=== PATIENT | female | born 2000 | race Caucasian/White ===

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

== ENCOUNTER 2022-03-08 20:51 | Emergency (ER) | payer OTHER, BC ==
[~2022-03-08] VITALS: Ht 175.3 cm; Wt 57.0 kg
[~2022-03-08 20:51] MED LIST changes: +FLUOXETINE HCL20 M1 PO
== END 2022-03-08 23:33 | disposition home or self-care (01) ==
LOC: ED 20:51
DX: S80.211A Abrasion, right knee, initial encounter (principal); W01.0XXA Fall on same level from slipping, tripping and stumbling without subsequent striking against object, initial encounter; Y93.67 Activity, basketball; Z88.0 Allergy status to penicillin
CPT/HCPCS: 76705; 99283-25

== ENCOUNTER 2022-07-29 13:28 | Emergency (ER) | payer OTHER ==
[~2022-07-29] VITALS: Ht 175.3 cm; Wt 49.9 kg
[2022-07-29] MEDS ORDERED: PRILOSEC OTC20 MG PO (17:35)
[2022-07-29] MEDS ORDERED: ONDANSETRON ODT4 MG PO (17:35)
== END 2022-07-29 19:47 | disposition home or self-care (01) ==
LOC: ED 13:28
DX: K29.70 Gastritis, unspecified, without bleeding (principal); Z88.0 Allergy status to penicillin
CPT/HCPCS: 36415; 74177; 80053; 81003; 83690; 84703; 85025; 99284-25; J2405; J7030; Q9967

== ENCOUNTER 2022-08-11 17:35 | Emergency (ER) | payer OTHER ==
[~2022-08-11] VITALS: Ht 175.3 cm; Wt 51.9 kg
[~2022-08-11 17:35] MED LIST changes: +ONDANSETRON ODT4 MG PO; +PRILOSEC OTC20 MG PO
--- OUTSIDE RECORDS SUMMARY | 2022-08-11 17:44 | XMS ---
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 Care History Medical/Surgical 09/06/2018 [facility] - Patient is currently established with [facility]. If patient is seen in the ED during business hours. Please contact CHWs at [facility]. Care Recommendation: This patient has had 5 [...] providing care. E.D. VISIT COUNT (12 MO.) [address] [facility] TOTAL 5 NOTE: Visits indicate total known visits. ED/UCC VISIT TRACKING (12 MO.) 08/11/2022 17:[facility] TYPE: Emergency COMPLAINT: - N/V 3 HOURS 07/29/2022 13:[facility] TYPE: Emergency COMPLAINT: - ABD PAIN, NAUSEA DIAGNOSES: - Epigastric pain - Gastritis, unspecified, without bleeding - Allergy status to penicillin 03/08/2022 20:54 [facility] TYPE: Emergency COMPLAINT: - FELL MULTI INJURIES DIAGNOSES: - Essential (primary) hypertension - Abrasion, right knee, initial encounter - Fall on same level from slipping, tripping and stumbling without subsequent striking against object, initial encounter - Pain in left hip - Activity, basketball - Allergy status to penicillin 01/07/2022 09:19 [facility] TYPE: Emergency COMPLAINT: - ABD PAIN, DIARRHEA, NAUSEA DIAGNOSES: - Other intermediate (current) drug therapy - Noninfective gastroenteritis and colitis, unspecified - Unspecified abdominal pain - Allergy status to penicillin 01/02/2022 11:20 [facility] TYPE: Emergency COMPLAINT: - FINGER INJURY INPATIENT VISIT TRACKING (12 MO.) No inpatient visits to display in this time frame [email or web address]
[2022-08-11] MEDS ORDERED: ONDANSETRON ODT8 MG PO (20:18)
== END 2022-08-11 20:45 | disposition home or self-care (01) ==
LOC: ED 17:35
DX: K52.9 Noninfective gastroenteritis and colitis, unspecified (principal); Z88.0 Allergy status to penicillin
CPT/HCPCS: 36415; 80053; 84703; 85025; 96361; 96374; 96375; 99284-25; A9270; J1790; J2405; J7030

== ENCOUNTER 2022-12-30 09:35 | Emergency (ER) | payer OTHER ==
[~2022-12-30] VITALS: Ht 175.3 cm; Wt 51.0 kg
--- OUTSIDE RECORDS SUMMARY | ~2022-12-30 | XMS | Continuity of Care Document ---
Demographics + + + | Address | [address] | | | [place] [address] | + + + | Preferred Language | Unknown | + + + | Marital Status | Never | + + + | Zoroastrian Affiliation | Unknown | + + + | Race | White | + + + | Ethnic Group | Not or | + + + Author + + + | Author | [facility] | + + + | Organization | [facility] | + + + | Address | [address] | | | [place] [address] | + + + | Phone | | + + + Care Team Providers + + + + | Care Medical Records Administrator Name | Role | Phone | + + + + Unavailable | Unavailable | + + + + Unavailable | Unavailable | + + + + Unavailable | Unavailable | + + + + Unavailable | Unavailable | + + + + Allergies and Intolerances + + + + + + | date | description | facility | reaction | severity | + + + + + + | (no date) | Rash | [facility] | (no reaction) | (no severity) | | | [facility] | | | + + + + + + | (no date) | Penicillin | [facility] | (no reaction) | (no severity) | | | [facility] | | | + + + + + + | (no date) | Penicillin | [facility] | (no reaction) | (no severity) | | | [facility] | | | + + + + + + | (no date) | Penicillin | [facility] | (no reaction) | (no severity) | | | | [facility] | | | + + + + + + | (no date) | Penicillin | [facility] | (no reaction) | (no severity) | | | | [facility] | | | + + + + + + Encounters No information. Functional Status No information. Immunizations No information. Medications + + + + | date | description | facility | + + + + | 2022-01-02 00:00 | FLUOXETINE HCL | [facility] | + + + + | 2022-01-07 00:00 | FLUOXETINE HCL | [facility] | + + + + | 2022-03-08 00:00 | FLUOXETINE HCL | [facility] | + + + + | 2022-07-29 00:00 | FLUOXETINE HCL | [facility] | + + + + | 2022-08-11 00:00 | FLUOXETINE HCL | [facility] | + + + + | 2022-07-29 00:00 | ONDANSETRON | [facility] | + + + + | 2022-01-02 00:00 | HYDROCODONE/ACETAMINOPHEN | [facility] | + + + + | 2022-01-07 00:00 | HYDROCODONE/ACETAMINOPHEN | [facility] | + + + + | 2022-03-08 00:00 | HYDROCODONE/ACETAMINOPHEN | [facility] | + + + + | 2022-07-29 00:00 | HYDROCODONE/ACETAMINOPHEN | [facility] | + + + + | 2022-08-11 00:00 | HYDROCODONE/ACETAMINOPHEN | [facility] | + + + + | 2017-07-07 00:00 | AZITHROMYCIN | [facility] | + + + + | 2017-07-07 00:00 | AZITHROMYCIN | [facility] | + + + + | 2017-07-07 00:00 | AZITHROMYCIN | [facility] | + + + + | 2022-01-02 00:00 | FLUOXETINE HCL | [facility] | + + + + | 2022-01-07 00:00 | FLUOXETINE HCL | [facility] | + + + + | 2022-03-08 00:00 | FLUOXETINE HCL | [facility] | + + + + | 2022-01-02 00:00 | ACETAMINOPHEN | [facility] | + + + + | 2022-01-07 00:00 | ACETAMINOPHEN | [facility] | + + + + | 2022-03-08 00:00 | ACETAMINOPHEN | [facility] | + + + + | 2022-07-29 00:00 | ACETAMINOPHEN | [facility] | + + + + | 2022-08-11 00:00 | ACETAMINOPHEN | [facility] | + + + + | 2018-08-15 00:00 | ONDANSETRON | [facility] | + + + + | 2018-08-15 00:00 | ONDANSETRON | [facility] | + + + + | 2018-08-15 00:00 | ONDANSETRON | [facility] | + + + + | 2020-08-17 00:00 | ONDANSETRON | [facility] | + + + + | 2020-08-17 00:00 | ONDANSETRON | [facility] | + + + + | 2020-08-17 00:00 | ONDANSETRON | [facility] | + + + + | 2021-07-21 00:00 | ONDANSETRON | [facility] | + + + + | 2021-07-21 00:00 | ONDANSETRON | [facility] | + + + + | 2021-07-21 00:00 | ONDANSETRON | [facility] | + + + + | 2022-08-11 00:00 | ONDANSETRON | [facility] | + + + + | 2022-07-29 00:00 | OMEPRAZOLE MAGNESIUM | [facility] | + + + + | 2022-01-02 00:00 | ONDANSETRON | [facility] | + + + + | 2022-01-07 00:00 | ONDANSETRON | [facility] | + + + + | 2022-03-08 00:00 | ONDANSETRON | [facility] | + + + + | 2022-07-29 00:00 | ONDANSETRON | [facility] | + + + + | 2022-08-11 00:00 | ONDANSETRON | [facility] | + + + + Problems + + + + | date | description | facility | + + + + | 2014-07-25 00:00 | Upper respiratory | [facility] | | | infection | | + + + + | 2014-07-25 00:00 | Upper respiratory | [facility] | | | infection | | + + + + | 2014-07-25 00:00 | Upper respiratory | [facility] | | | infection | | + + + + | 2015-06-10 00:00 | Acute streptococcal | [facility] | | | pharyngitis | | + + + + | 2015-06-10 00:00 | Acute streptococcal | [facility] | | | pharyngitis | | + + + + | 2015-06-10 00:00 | Acute streptococcal | [facility] | | | pharyngitis | | + + + + | 2015-11-14 00:00 | Dehydration | [facility] | + + + + | 2015-11-14 00:00 | Dehydration | [facility] | + + + + | 2015-11-14 00:00 | Dehydration | [facility] | + + + + | 2015-11-14 00:00 | Postoperative pain | [facility] | + + + + | 2015-11-14 00:00 | Postoperative pain | [facility] | + + + + | 2015-11-14 00:00 | Postoperative pain | [facility] | + + + + | 2017-07-07 00:00 | Pharyngitis due to | [facility] | | | Streptococcus species | | + + + + | 2017-07-07 00:00 | Pharyngitis due to | [facility] | | | Streptococcus species | | + + + + | 2017-07-07 00:00 | Pharyngitis due to | [facility] | | | Streptococcus species | | + + + + | 2017-10-27 00:00 | Patient left without being | [facility] | | | seen | | + + + + | 2017-10-27 00:00 | Patient left without being | [facility] | | | seen | | + + + + | 2017-10-27 00:00 | Patient left without being | [facility] | | | seen | | + + + + | 2018-06-01 00:00 | Sprain of right wrist | [facility] | + + + + | 2018-06-01 00:00 | Sprain of right wrist | [facility] | + + + + | 2018-06-01 00:00 | Sprain of right wrist | [facility] | + + + + | 2018-08-15 00:00 | Abdominal pain | [facility] | + + + + | 2018-08-15 00:00 | Abdominal pain | [facility] | + + + + | 2018-08-15 00:00 | Abdominal pain | [facility] | + + + + | 2018-09-03 00:00 | Sprain of right ankle | [facility] | + + + + | 2018-09-03 00:00 | Sprain of right ankle | [facility] | + + + + | 2018-09-03 00:00 | Sprain of right ankle | [facility] | + + + + | 2019-05-12 00:00 | Upper respiratory tract | [facility] | | | infection | | + + + + | 2019-05-12 00:00 | Upper respiratory tract | [facility] | | | infection | | + + + + | 2019-05-12 00:00 | Upper respiratory tract | [facility] | | | infection | | + + + + | 2020-08-17 00:00 | Viral infection | [facility] | + + + + | 2020-08-17 00:00 | Viral infection | [facility] | + + + + | 2020-08-17 00:00 | Viral infection | [facility] | + + + + | 2020-12-01 00:00 | Right upper quadrant | [facility] | | | abdominal pain | | + + + + | 2020-12-01 00:00 | Right upper quadrant | [facility] | | | abdominal pain | | + + + + | 2020-12-01 00:00 | Right upper quadrant | [facility] | | | abdominal pain | | + + + + | 2021-07-21 00:00 | Gastroenteritis | [facility] | + + + + | 2021-07-21 00:00 | Gastroenteritis | [facility] | + + + + | 2021-07-21 00:00 | Gastroenteritis | [facility] | + + + + | 2022-01-02 00:00 | Encounter for medical | [facility] | | | screening examination | | + + + + | 2022-01-02 00:00 | Encounter for medical | [facility] | | | screening examination | | + + + + | 2022-01-02 00:00 | Encounter for medical | [facility] | | | screening examination | | + + + + | 2022-01-07 00:00 | Enterocolitis | [facility] | + + + + | 2022-01-07 00:00 | Enterocolitis | [facility] | + + + + | 2022-01-07 00:00 | Enterocolitis | [facility] | + + + + | 2022-03-08 00:00 | Multiple contusions | [facility] | + + + + | 2022-03-08 00:00 | Multiple contusions | [facility] | + + + + | 2022-03-08 00:00 | Multiple contusions | [facility] | + + + + | 2022-07-29 00:00 | Gastritis | [facility] | + + + + | 2022-07-29 00:00 | Gastritis | [facility] | + + + + | 2022-08-11 17:36 | NONINFECTIVE | [facility] | | | GASTROENTERITIS AND | | | | COLITIS, UNSPECIF | | + + + + | 2022-08-11 17:36 | NAUSEA WITH VOMITING, | [facility] | | | UNSPECIFIED | | + + + + | 2022-08-11 17:36 | ALLERGY STATUS TO | [facility] | | | PENICILLIN | | + + + + Procedures No information. Results/Labs +--------+--------+ +---------+--------+---------+ | test | date | facility | value | unit | notes | +--------+--------+ +---------+--------+---------+ + + | Result panel 1 | + + + + + +--------+ + + | | 2021-07-21 | [facility] | 4.43 | (missing) | (missing) | | (unavailable | 05:45 | [facility] | | | | + + + +--------+ + + + + | Result panel 2 | + + + + + +--------+ + + | | 2021-07-21 | [facility] | 13.4 | (missing) | (missing) | | (unavailable | 05:45 | [facility] | | | | + + + +--------+ + + + + | Result panel 3 | + + + + + +--------+ + + | | 2021-07-21 | [facility] | 40.3 | (missing) | (missing) | | (unavailable | 05:45 | [facility] | | | | + + + +--------+ + + + + | Result panel 4 | + + + + + +--------+ + + | | 2021-07-21 | [facility] | 90.9 | (missing) | (missing) | | (unavailable | 05:45 | [facility] | | | | + + + +--------+ + + + + | Result panel 5 | + + + + + +--------+ + + | | 2021-07-21 | [facility] | 30.3 | (missing) | (missing) | | (unavailable | 05:45 | [facility] | | | | + + + +--------+ + + + + | Result panel 6 | + + + + + +--------+ + + | | 2021-07-21 | [facility] | 33.3 | (missing) | (missing) | | (unavailable | 05:45 | [facility] | | | | + + + +--------+ + + + + | Result panel 7 | + + + + + +--------+ + + | | 2021-07-21 | [facility] | 13.1 | (missing) | (missing) | | (unavailable | 05:45 | [facility] | | | | + + + +--------+ + + + + | Result panel 8 | + + + + + +-------+ + + | | 2021-07-21 | [facility] | 199 | (missing) | (missing) | | (unavailable | 05:45 | [facility] | | | | + + + +-------+ + + + + | Result panel 9 | + + + + + +--------+ + + | | 2021-07-21 | [facility] | 88.5 | (missing) | (missing) | | (unavailable | 05:45 | [facility] | | | | + + + +--------+ + + + + | Result panel 10 | + + + + + +-------+ + + | | 2021-07-21 | [facility] | 6.7 | (missing) | (missing) | | (unavailable | 05:45 | [facility] | | | | + + + +-------+ + + + + | Result panel 11 | + + + + + +-------+ + + | | 2021-07-21 | [facility] | 4.2 | (missing) | (missing) | | (unavailable | 05:45 | [facility] | | | | + + + +-------+ + + + + | Result panel 12 | + + + + + +-------+ + + | | 2021-07-21 | [facility] | 0.5 | (missing) | (missing) | | (unavailable | 05:45 | [facility] | | | | + + + +-------+ + + + + | Result panel 13 | + + + + + +-------+ + + | | 2021-07-21 | [facility] | 0.1 | (missing) | (missing) | | (unavailable | 05:45 | [facility] | | | | + + + +-------+ + + + + | Result panel 14 | + + + + + +-------+---------+ + | | 2021-07-21 | [facility] | 126 | mg/dL | (missing) | | (unavailable | 05:45 | [facility] | | | | + + + +-------+---------+ + + + | Result panel 15 | + + + + + +------+---------+ + | | 2021-07-21 | [facility] | 12 | mg/dL | (missing) | | (unavailable | 05:45 | [facility] | | | | + + + +------+---------+ + + + | Result panel 16 | + + + + + +--------+---------+ + | | 2021-07-21 | [facility] | 0.77 | mg/dL | (missing) | | (unavailable | 05:45 | [facility] | | | | + + + +--------+---------+ + + + | Result panel 17 | + + + + + + + + + | | 2021-07-21 | [facility] | > 60.00 | (missing) | (missing) | | (unavailable | 05:45 | [facility] | | | | + + + + + + + + + | Result panel 18 | + + + + + +---------+ + + | | 2021-07-21 | [facility] | 15.58 | (missing) | (missing) | | (unavailable | 05:45 | [facility] | | | | + + + +---------+ + + + + | Result panel 19 | + + + + + +-------+ + + | | 2021-07-21 | [facility] | 138 | (missing) | (missing) | | (unavailable | 05:45 | [facility] | | | | + + + +-------+ + + + + | Result panel 20 | + + + + + +-------+ + + | | 2021-07-21 | [facility] | 3.6 | (missing) | (missing) | | (unavailable | 05:45 | [facility] | | | | + + + +-------+ + + + + | Result panel 21 | + + + + + +-------+ + + | | 2021-07-21 | [facility] | 105 | (missing) | (missing) | | (unavailable | 05:45 | [facility] | | | | + + + +-------+ + + + + | Result panel 22 | + + + + + +------+ + + | | 2021-07-21 | [facility] | 26 | (missing) | (missing) | | (unavailable | 05:45 | [facility] | | | | + + + +------+ + + + + | Result panel 23 | + + + + + +--------+ + + | | 2021-07-21 | [facility] | 10.6 | (missing) | (missing) | | (unavailable | 05:45 | [facility] | | | | + + + +--------+ + + + + | Result panel 24 | + + + + + +-------+---------+ + | | 2021-07-21 | [facility] | 8.8 | mg/dL | (missing) | | (unavailable | 05:45 | [facility] | | | | + + + +-------+---------+ + + + | Result panel 25 | + + + + + +-------+ + + | | 2021-07-21 | [facility] | 7.5 | (missing) | (missing) | | (unavailable | 05:45 | [facility] | | | | + + + +-------+ + + + + | Result panel 26 | + + + + + +-------+ + + | | 2021-07-21 | [facility] | 4.2 | (missing) | (missing) | | (unavailable | 05:45 | [facility] | | | | + + + +-------+ + + + + | Result panel 27 | + + + + + +-------+ + + | | 2021-07-21 | [facility] | 3.3 | (missing) | (missing) | | (unavailable | 05:45 | [facility] | | | | + + + +-------+ + + + + | Result panel 28 | + + + + + +--------+ + + | | 2021-07-21 | [facility] | 1.27 | (missing) | (missing) | | (unavailable | 05:45 | [facility] | | | | + + + +--------+ + + + + | Result panel 29 | + + + + + +-------+ + + | | 2021-07-21 | [facility] | 1.0 | (missing) | (missing) | | (unavailable | 05:45 | [facility] | | | | + + + +-------+ + + + + | Result panel 30 | + + + + + +------+ + + | | 2021-07-21 | [facility] | 13 | (missing) | (missing) | | (unavailable | 05:45 | [facility] | | | | + + + +------+ + + + + | Result panel 31 | + + + + + +------+ + + | | 2021-07-21 | [facility] | 12 | (missing) | (missing) | | (unavailable | 05:45 | [facility] | | | | + + + +------+ + + + + | Result panel 32 | + + + + + +------+ + + | | 2021-07-21 | [facility] | 71 | (missing) | (missing) | | (unavailable | 05:45 | [facility] | | | | + + + +------+ + + + + | Result panel 33 | + + + + + +-------+ + + | | 2021-07-21 | [facility] | 109 | (missing) | (missing) | | (unavailable | 05:45 | [facility] | | | | + + + +-------+ + + + + | Result panel 34 | + + + + + + + + + | | 2021-07-21 | [facility] | NEGATIVE | (missing) | (missing) | | (unavailable | 05:45 | [facility] | | | | + + + + + + + + + | Result panel 35 | + + + + + +--------+ + + | | 2021-07-21 | [facility] | 10.5 | (missing) | (missing) | | (unavailable | 05:45 | [facility] | | | | + + + +--------+ + + + + | Result panel 36 | + + + + + + + + + | | 2021-07-21 | [facility] | YELLOW | (missing) | (missing) | | (unavailable | 06:48 | [facility] | | | | + + + + + + + + + | Result panel 37 | + + + + + +---------+ + + | | 2021-07-21 | [facility] | CLEAR | (missing) | (missing) | | (unavailable | 06:48 | [facility] | | | | + + + +---------+ + + + + | Result panel 38 | + + + + + + + + + | | 2021-07-21 | [facility] | NEGATIVE | (missing) | (missing) | | (unavailable | 06:48 | [facility] | | | | + + + + + + + + + | Result panel 39 | + + + + + + + + + | | 2021-07-21 | [facility] | NEGATIVE | (missing) | (missing) | | (unavailable | 06:48 | [facility] | | | | + + + + + + + + + | Result panel 40 | + + + + + + + + + | | 2021-07-21 | [facility] | NEGATIVE | (missing) | (missing) | | (unavailable | 06:48 | [facility] | | | | + + + + + + + + + | Result panel 41 | + + + + + + + + + | | 2021-07-21 | [facility] | <=1.005 | (missing) | (missing) | | (unavailable | 06:48 | [facility] | | | | + + + + + + + + + | Result panel 42 | + + + + + +---------+ + + | | 2021-07-21 | [facility] | LARGE | (missing) | (missing) | | (unavailable | 06:48 | [facility] | | | | + + + +---------+ + + + + | Result panel 43 | + + + + + +-------+ + + | | 2021-07-21 | [facility] | 5.0 | (missing) | (missing) | | (unavailable | 06:48 | [facility] | | | | + + + +-------+ + + + + | Result panel 44 | + + + + + + + + + | | 2021-07-21 | [facility] | NEGATIVE | (missing) | (missing) | | (unavailable | 06:48 | [facility] | | | | + + + + + + + + + | Result panel 45 | + + + + + + + + + | | 2021-07-21 | [facility] | NORMAL | (missing) | (missing) | | (unavailable | 06:48 | [facility] | | | | + + + + + + + + + | Result panel 46 | + + + + + + + + + | | 2021-07-21 | [facility] | NEGATIVE | (missing) | (missing) | | (unavailable | 06:48 | [facility] | | | | + + + + + + + + + | Result panel 47 | + + + + + + + + + | | 2021-07-21 | [facility] | NEGATIVE | (missing) | (missing) | | (unavailable | 06:48 | [facility] | | | | + + + + + + + + + | Result panel 48 | + + + + + +-------+ + + | | 2021-07-21 | [facility] | 2-3 | (missing) | (missing) | | (unavailable | 06:48 | [facility] | | | | + + + +-------+ + + + + | Result panel 49 | + + + + + +-------+ + + | | 2021-07-21 | [facility] | 2-3 | (missing) | (missing) | | (unavailable | 06:48 | [facility] | | | | + + + +-------+ + + + + | Result panel 50 | + + + + + + + + + | | 2021-07-21 | [facility] | SQUAMOUS 2+ | (missing) | (missing) | | (unavailable | 06:48 | [facility] | | | | + + + + + + + + + | Result panel 51 | + + + + + + + + + | | 2021-07-21 | [facility] | NONE SEEN | (missing) | (missing) | | (unavailable | 06:48 | [facility] | | | | + + + + + + + + + | Result panel 52 | + + + + + + + + + | | 2021-07-21 | [facility] | NONE SEEN | (missing) | (missing) | | (unavailable | 06:48 | [facility] | | | | + + + + + + + + + | Result panel 53 | + + + + + + + + + | | 2021-07-21 | [facility] | NONE SEEN | (missing) | (missing) | | (unavailable | 06:48 | [facility] | | | | + + + + + + + + + | Result panel 54 | + + + + + +-------+ + + | | 2022-01-07 | [facility] | 6.4 | (missing) | (missing) | | (unavailable | 09:35 | [facility] | | | | + + + +-------+ + + + + | Result panel 55 | + + + + + +--------+ + + | | 2022-01-07 | [facility] | 4.23 | (missing) | (missing) | | (unavailable | 09:35 | [facility] | | | | + + + +--------+ + + + + | Result panel 56 | + + + + + +--------+ + + | | 2022-01-07 | [facility] | 12.8 | (missing) | (missing) | | (unavailable | 09:35 | [facility] | | | | + + + +--------+ + + + + | Result panel 57 | + + + + + +--------+ + + | | 2022-01-07 | [facility] | 38.6 | (missing) | (missing) | | (unavailable | 09:35 | [facility] | | | | + + + +--------+ + + + + | Result panel 58 | + + + + + +--------+ + + | | 2022-01-07 | [facility] | 91.3 | (missing) | (missing) | | (unavailable | 09:35 | [facility] | | | | + + + +--------+ + + + + | Result panel 59 | + + + + + +--------+ + + | | 2022-01-07 | [facility] | 30.3 | (missing) | (missing) | | (unavailable | 09:35 | [facility] | | | | + + + +--------+ + + + + | Result panel 60 | + + + + + +--------+ + + | | 2022-01-07 | [facility] | 33.2 | (missing) | (missing) | | (unavailable | 09:35 | [facility] | | | | + + + +--------+ + + + + | Result panel 61 | + + + + + +--------+ + + | | 2022-01-07 | [facility] | 12.8 | (missing) | (missing) | | (unavailable | 09:35 | [facility] | | | | + + + +--------+ + + + + | Result panel 62 | + + + + + +-------+ + + | | 2022-01-07 | [facility] | 178 | (missing) | (missing) | | (unavailable | 09:35 | [facility] | | | | + + + +-------+ + + + + | Result panel 63 | + + + + + +--------+ + + | | 2022-01-07 | [facility] | 85.2 | (missing) | (missing) | | (unavailable | 09:35 | [facility] | | | | + + + +--------+ + + + + | Result panel 64 | + + + + + +--------+ + + | | 2022-01-07 | [facility] | 10.2 | (missing) | (missing) | | (unavailable | 09:35 | [facility] | | | | + + + +--------+ + + + + | Result panel 65 | + + + + + +-------+ + + | | 2022-01-07 | [facility] | 4.4 | (missing) | (missing) | | (unavailable | 09:35 | [facility] | | | | + + + +-------+ + + + + | Result panel 66 | + + + + + +-------+ + + | | 2022-01-07 | [facility] | 0.0 | (missing) | (missing) | | (unavailable | 09:35 | [facility] | | | | + + + +-------+ + + + + | Result panel 67 | + + + + + +-------+ + + | | 2022-01-07 | [facility] | 0.2 | (missing) | (missing) | | (unavailable | 09:35 | [facility] | | | | + + + +-------+ + + + + | Result panel 68 | + + + + + +------+---------+ + | | 2022-01-07 | [facility] | 83 | mg/dL | (missing) | | (unavailable | 09:35 | [facility] | | | | + + + +------+---------+ + + + | Result panel 69 | + + + + + +------+---------+ + | | 2022-01-07 | [facility] | 14 | mg/dL | (missing) | | (unavailable | 09:35 | [facility] | | | | + + + +------+---------+ + + + | Result panel 70 | + + + + + +--------+---------+ + | | 2022-01-07 | [facility] | 0.64 | mg/dL | (missing) | | (unavailable | 09:35 | [facility] | | | | + + + +--------+---------+ + + + | Result panel 71 | + + + + + +-------+ + + | | 2022-01-07 | [facility] | 130 | (missing) | (missing) | | (unavailable | 09:35 | [facility] | | | | + + + +-------+ + + + + | Result panel 72 | + + + + + +---------+ + + | | 2022-01-07 | [facility] | 21.87 | (missing) | (missing) | | (unavailable | 09:35 | [facility] | | | | + + + +---------+ + + + + | Result panel 73 | + + + + + +-------+ + + | | 2022-01-07 | [facility] | 137 | (missing) | (missing) | | (unavailable | 09:35 | [facility] | | | | + + + +-------+ + + + + | Result panel 74 | + + + + + +-------+ + + | | 2022-01-07 | [facility] | 3.9 | (missing) | (missing) | | (unavailable | 09:35 | [facility] | | | | + + + +-------+ + + + + | Result panel 75 | + + + + + +-------+ + + | | 2022-01-07 | [facility] | 101 | (missing) | (missing) | | (unavailable | 09:35 | [facility] | | | | + + + +-------+ + + + + | Result panel 76 | + + + + + +------+ + + | | 2022-01-07 | [facility] | 23 | (missing) | (missing) | | (unavailable | 09:35 | [facility] | | | | + + + +------+ + + + + | Result panel 77 | + + + + + +--------+ + + | | 2022-01-07 | [facility] | 16.9 | (missing) | (missing) | | (unavailable | 09:35 | [facility] | | | | + + + +--------+ + + + + | Result panel 78 | + + + + + +-------+---------+ + | | 2022-01-07 | [facility] | 8.5 | mg/dL | (missing) | | (unavailable | 09:35 | [facility] | | | | + + + +-------+---------+ + + + | Result panel 79 | + + + + + +-------+ + + | | 2022-01-07 | [facility] | 7.3 | (missing) | (missing) | | (unavailable | 09:35 | [facility] | | | | + + + +-------+ + + + + | Result panel 80 | + + + + + +-------+ + + | | 2022-01-07 | [facility] | 3.9 | (missing) | (missing) | | (unavailable | 09:35 | [facility] | | | | + + + +-------+ + + + + | Result panel 81 | + + + + + +-------+ + + | | 2022-01-07 | [facility] | 3.4 | (missing) | (missing) | | (unavailable | 09:35 | [facility] | | | | + + + +-------+ + + + + | Result panel 82 | + + + + + +--------+ + + | | 2022-01-07 | [facility] | 1.15 | (missing) | (missing) | | (unavailable | 09:35 | [facility] | | | | + + + +--------+ + + + + | Result panel 83 | + + + + + +-------+ + + | | 2022-01-07 | [facility] | 1.4 | (missing) | (missing) | | (unavailable | 09:35 | [facility] | | | | + + + +-------+ + + + + | Result panel 84 | + + + + + +------+ + + | | 2022-01-07 | [facility] | 16 | (missing) | (missing) | | (unavailable | 09:35 | [facility] | | | | + + + +------+ + + + + | Result panel 85 | + + + + + +------+ + + | | 2022-01-07 | [facility] | 20 | (missing) | (missing) | | (unavailable | 09:35 | [facility] | | | | + + + +------+ + + + + | Result panel 86 | + + + + + +------+ + + | | 2022-01-07 | [facility] | 76 | (missing) | (missing) | | (unavailable | 09:35 | [facility] | | | | + + + +------+ + + + + | Result panel 87 | + + + + + +------+ + + | | 2022-01-07 | [facility] | 42 | (missing) | (missing) | | (unavailable | 09:35 | [facility] | | | | + + + +------+ + + + + | Result panel 88 | + + + + + + + + + | | 2022-01-07 | [facility] | NEGATIVE | (missing) | (missing) | | (unavailable | 09:35 | [facility] | | | | + + + + + + + + + | Result panel 89 | + + + + + + + + + | | 2022-01-07 | [facility] | YELLOW | (missing) | (missing) | | (unavailable | 10:26 | [facility] | | | | + + + + + + + + + | Result panel 90 | + + + + + +---------+ + + | | 2022-01-07 | [facility] | CLEAR | (missing) | (missing) | | (unavailable | 10:26 | [facility] | | | | + + + +---------+ + + + + | Result panel 91 | + + + + + + + + + | | 2022-01-07 | [facility] | NEGATIVE | (missing) | (missing) | | (unavailable | 10:26 | [facility] | | | | + + + + + + + + + | Result panel 92 | + + + + + + + + + | | 2022-01-07 | [facility] | NEGATIVE | (missing) | (missing) | | (unavailable | 10:26 | [facility] | | | | + + + + + + + + + | Result panel 93 | + + + + + +--------+ + + | | 2022-01-07 | [facility] | >=80 | (missing) | (missing) | | (unavailable | 10:26 | [facility] | | | | + + + +--------+ + + + + | Result panel 94 | + + + + + + + + + | | 2022-01-07 | [facility] | >=1.030 | (missing) | (missing) | | (unavailable | 10:26 | [facility] | | | | + + + + + + + + + | Result panel 95 | + + + + + + + + + | | 2022-01-07 | [facility] | NEGATIVE | (missing) | (missing) | | (unavailable | 10:26 | [facility] | | | | + + + + + + + + + | Result panel 96 | + + + + + +-------+ + + | | 2022-01-07 | [facility] | 6.0 | (missing) | (missing) | | (unavailable | 10:26 | [facility] | | | | + + + +-------+ + + + + | Result panel 97 | + + + + + + + + + | | 2022-01-07 | [facility] | NEGATIVE | (missing) | (missing) | | (unavailable | 10:26 | [facility] | | | | + + + + + + + + + | Result panel 98 | + + + + + + + + + | | 2022-01-07 | [facility] | NORMAL | (missing) | (missing) | | (unavailable | 10:26 | [facility] | | | | + + + + + + + + + | Result panel 99 | + + + + + + + + + | | 2022-01-07 | [facility] | NEGATIVE | (missing) | (missing) | | (unavailable | 10:26 | [facility] | | | | + + + + + + + + + | Result panel 100 | + + + + + + + + + | | 2022-01-07 | [facility] | NEGATIVE | (missing) | (missing) | | (unavailable | 10:26 | [facility] | | | | + + + + + + + + + | Result panel 101 | + + + + + +--------+ + + | | 2022-07-29 | [facility] | 77.3 | (missing) | (missing) | | (unavailable | 14:29:07 | [facility] | | | | + + + +--------+ + + + + | Result panel 102 | + + + + + +--------+ + + | | 2022-07-29 | [facility] | 11.7 | (missing) | (missing) | | (unavailable | 14:29:07 | [facility] | | | | + + + +--------+ + + + + | Result panel 103 | + + + + + +-------+ + + | | 2022-07-29 | [facility] | 9.8 | (missing) | (missing) | | (unavailable | 14:29:07 | [facility] | | | | + + + +-------+ + + + + | Result panel 104 | + + + + + +-------+ + + | | 2022-07-29 | [facility] | 1.1 | (missing) | (missing) | | (unavailable | 14:29:07 | [facility] | | | | + + + +-------+ + + + + | Result panel 105 | + + + + + +-------+ + + | | 2022-07-29 | [facility] | 0.1 | (missing) | (missing) | | (unavailable | 14:29:07 | [facility] | | | | + + + +-------+ + + + + | Result panel 106 | + + + + + +------+ + + | | 2022-07-29 | [facility] | 60 | (missing) | (missing) | | (unavailable | 14:29:07 | [facility] | | | | + + + +------+ + + + + | Result panel 107 | + + + + + +-------+ + + | | 2022-07-29 | [facility] | 9.9 | (missing) | (missing) | | (unavailable | 14:29:07 | [facility] | | | | + + + +-------+ + + + + | Result panel 108 | + + + + + +--------+ + + | | 2022-07-29 | [facility] | 4.35 | (missing) | (missing) | | (unavailable | 14:29:07 | [facility] | | | | + + + +--------+ + + + + | Result panel 109 | + + + + + +--------+ + + | | 2022-07-29 | [facility] | 13.0 | (missing) | (missing) | | (unavailable | 14:29:07 | [facility] | | | | + + + +--------+ + + + + | Result panel 110 | + + + + + +--------+ + + | | 2022-07-29 | [facility] | 39.1 | (missing) | (missing) | | (unavailable | 14:29:07 | [facility] | | | | + + + +--------+ + + + + | Result panel 111 | + + + + + +--------+ + + | | 2022-07-29 | [facility] | 90.0 | (missing) | (missing) | | (unavailable | 14:29:07 | [facility] | | | | + + + +--------+ + + + + | Result panel 112 | + + + + + +--------+ + + | | 2022-07-29 | [facility] | 29.9 | (missing) | (missing) | | (unavailable | 14:29:07 | [facility] | | | | + + + +--------+ + + + + | Result panel 113 | + + + + + +--------+ + + | | 2022-07-29 | [facility] | 33.2 | (missing) | (missing) | | (unavailable | 14:29:07 | [facility] | | | | + + + +--------+ + + + + | Result panel 114 | + + + + + +--------+ + + | | 2022-07-29 | [facility] | 12.7 | (missing) | (missing) | | (unavailable | 14:29:07 | [facility] | | | | + + + +--------+ + + + + | Result panel 115 | + + + + + +-------+ + + | | 2022-07-29 | [facility] | 202 | (missing) | (missing) | | (unavailable | 14:29:07 | [facility] | | | | + + + +-------+ + + + + | Result panel 116 | + + + + + +--------+ + + | | 2022-07-29 | [facility] | 77.3 | (missing) | (missing) | | (unavailable | 14:29:07 | [facility] | | | | + + + +--------+ + + + + | Result panel 117 | + + + + + +--------+ + + | | 2022-07-29 | [facility] | 11.7 | (missing) | (missing) | | (unavailable | 14:29:07 | [facility] | | | | + + + +--------+ + + + + | Result panel 118 | + + + + + +-------+ + + | | 2022-07-29 | [facility] | 9.8 | (missing) | (missing) | | (unavailable | 14:29:07 | [facility] | | | | + + + +-------+ + + + + | Result panel 119 | + + + + + +-------+ + + | | 2022-07-29 | [facility] | 1.1 | (missing) | (missing) | | (unavailable | 14:29:07 | [facility] | | | | + + + +-------+ + + + + | Result panel 120 | + + + + + +-------+ + + | | 2022-07-29 | [facility] | 0.1 | (missing) | (missing) | | (unavailable | 14:29:07 | [facility] | | | | + + + +-------+ + + + + | Result panel 121 | + + + + + +------+---------+ + | | 2022-07-29 | [facility] | 85 | mg/dL | (missing) | | (unavailable | 14:29:07 | [facility] | | | | + + + +------+---------+ + + + | Result panel 122 | + + + + + +-----+---------+ + | | 2022-07-29 | [facility] | 9 | mg/dL | (missing) | | (unavailable | 14:29:07 | [facility] | | | | + + + +-----+---------+ + + + | Result panel 123 | + + + + + +--------+---------+ + | | 2022-07-29 | [facility] | 0.61 | mg/dL | (missing) | | (unavailable | 14:29:07 | [facility] | | | | + + + +--------+---------+ + + + | Result panel 124 | + + + + + +-------+ + + | | 2022-07-29 | [facility] | 131 | (missing) | (missing) | | (unavailable | 14:29:07 | [facility] | | | | + + + +-------+ + + + + | Result panel 125 | + + + + + +---------+ + + | | 2022-07-29 | [facility] | 14.75 | (missing) | (missing) | | (unavailable | 14:29:07 | [facility] | | | | + + + +---------+ + + + + | Result panel 126 | + + + + + +-------+ + + | | 2022-07-29 | [facility] | 139 | (missing) | (missing) | | (unavailable | 14:29:07 | [facility] | | | | + + + +-------+ + + + + | Result panel 127 | + + + + + +-------+ + + | | 2022-07-29 | [facility] | 3.8 | (missing) | (missing) | | (unavailable | 14:29:07 | [facility] | | | | + + + +-------+ + + + + | Result panel 128 | + + + + + +-------+ + + | | 2022-07-29 | [facility] | 104 | (missing) | (missing) | | (unavailable | 14:29:07 | [facility] | | | | + + + +-------+ + + + + | Result panel 129 | + + + + + +------+ + + | | 2022-07-29 | [facility] | 24 | (missing) | (missing) | | (unavailable | 14:29:07 | [facility] | | | | + + + +------+ + + + + | Result panel 130 | + + + + + +--------+ + + | | 2022-07-29 | [facility] | 14.8 | (missing) | (missing) | | (unavailable | 14:29:07 | [facility] | | | | + + + +--------+ + + + + | Result panel 131 | + + + + + +-------+---------+ + | | 2022-07-29 | [facility] | 9.3 | mg/dL | (missing) | | (unavailable | 14:29:07 | [facility] | | | | + + + +-------+---------+ + + + | Result panel 132 | + + + + + +-------+ + + | | 2022-07-29 | [facility] | 7.4 | (missing) | (missing) | | (unavailable | 14:29:07 | [facility] | | | | + + + +-------+ + + + + | Result panel 133 | + + + + + +-------+ + + | | 2022-07-29 | [facility] | 4.0 | (missing) | (missing) | | (unavailable | 14:29:07 | [facility] | | | | + + + +-------+ + + + + | Result panel 134 | + + + + + +-------+ + + | | 2022-07-29 | [facility] | 3.4 | (missing) | (missing) | | (unavailable | 14:29:07 | [facility] | | | | + + + +-------+ + + + + | Result panel 135 | + + + + + +--------+ + + | | 2022-07-29 | [facility] | 1.18 | (missing) | (missing) | | (unavailable | 14:29:07 | [facility] | | | | + + + +--------+ + + + + | Result panel 136 | + + + + + +-------+ + + | | 2022-07-29 | [facility] | 1.1 | (missing) | (missing) | | (unavailable | 14:29:07 | [facility] | | | | + + + +-------+ + + + + | Result panel 137 | + + + + + +------+ + + | | 2022-07-29 | [facility] | 20 | (missing) | (missing) | | (unavailable | 14:29:07 | [facility] | | | | + + + +------+ + + + + | Result panel 138 | + + + + + +-----+ + + | | 2022-07-29 | [facility] | 9 | (missing) | (missing) | | (unavailable | 14:29:07 | [facility] | | | | + + + +-----+ + + + + | Result panel 139 | + + + + + +------+ + + | | 2022-07-29 | [facility] | 65 | (missing) | (missing) | | (unavailable | 14:29:07 | [facility] | | | | + + + +------+ + + + + | Result panel 140 | + + + + + +------+ + + | | 2022-07-29 | [facility] | 60 | (missing) | (missing) | | (unavailable | 14:29:07 | [facility] | | | | + + + +------+ + + + + | Result panel 141 | + + + + + + + + + | | 2022-07-29 | [facility] | YELLOW | (missing) | (missing) | | (unavailable | 14:30:07 | [facility] | | | | + + + + + + + + + | Result panel 142 | + + + + + +---------+ + + | | 2022-07-29 | [facility] | CLEAR | (missing) | (missing) | | (unavailable | 14:30:07 | [facility] | | | | + + + +---------+ + + + + | Result panel 143 | + + + + + + + + + | | 2022-07-29 | [facility] | NEGATIVE | (missing) | (missing) | | (unavailable | 14:30:07 | [facility] | | | | + + + + + + + + + | Result panel 144 | + + + + + + + + + | | 2022-07-29 | [facility] | NEGATIVE | (missing) | (missing) | | (unavailable | 14:30:07 | [facility] | | | | + + + + + + + + + | Result panel 145 | + + + + + +---------+ + + | | 2022-07-29 | [facility] | TRACE | (missing) | (missing) | | (unavailable | 14:30:07 | [facility] | | | | + + + +---------+ + + + + | Result panel 146 | + + + + + +---------+ + + | | 2022-07-29 | [facility] | 1.025 | (missing) | (missing) | | (unavailable | 14:30:07 | [facility] | | | | + + + +---------+ + + + + | Result panel 147 | + + + + + + + + + | | 2022-07-29 | [facility] | NEGATIVE | (missing) | (missing) | | (unavailable | 14:30:07 | [facility] | | | | + + + + + + + + + | Result panel 148 | + + + + + +-------+ + + | | 2022-07-29 | [facility] | 6.0 | (missing) | (missing) | | (unavailable | 14:30:07 | [facility] | | | | + + + +-------+ + + + + | Result panel 149 | + + + + + + + + + | | 2022-07-29 | [facility] | NEGATIVE | (missing) | (missing) | | (unavailable | 14:30:07 | [facility] | | | | + + + + + + + + + | Result panel 150 | + + + + + +-------+ + + | | 2022-07-29 | [facility] | 2.0 | (missing) | (missing) | | (unavailable | 14:30:07 | [facility] | | | | + + + +-------+ + + + + | Result panel 151 | + + + + + + + + + | | 2022-07-29 | [facility] | NEGATIVE | (missing) | (missing) | | (unavailable | 14:30:07 | [facility] | | | | + + + + + + + + + | Result panel 152 | + + + + + + + + + | | 2022-07-29 | [facility] | NEGATIVE | (missing) | (missing) | | (unavailable | 14:30:07 | [facility] | | | | + + + + + + + + + | Result panel 153 | + + + + + + + + + | | 2022-07-29 | [facility] | YELLOW | (missing) | (missing) | | (unavailable | 14:30:07 | [facility] | | | | + + + + + + + + + | Result panel 154 | + + + + + +---------+ + + | | 2022-07-29 | [facility] | CLEAR | (missing) | (missing) | | (unavailable | 14:30:07 | [facility] | | | | + + + +---------+ + + + + | Result panel 155 | + + + + + + + + + | | 2022-07-29 | [facility] | NEGATIVE | (missing) | (missing) | | (unavailable | 14:30:07 | [facility] | | | | + + + + + + + + + | Result panel 156 | + + + + + + + + + | | 2022-07-29 | [facility] | NEGATIVE | (missing) | (missing) | | (unavailable | 14:30:07 | [facility] | | | | + + + + + + + + + | Result panel 157 | + + + + + +---------+ + + | | 2022-07-29 | [facility] | TRACE | (missing) | (missing) | | (unavailable | 14:30:07 | [facility] | | | | + + + +---------+ + + + + | Result panel 158 | + + + + + +---------+ + + | | 2022-07-29 | [facility] | 1.025 | (missing) | (missing) | | (unavailable | 14:30:07 | [facility] | | | | + + + +---------+ + + + + | Result panel 159 | + + + + + + + + + | | 2022-07-29 | [facility] | NEGATIVE | (missing) | (missing) | | (unavailable | 14:30:07 | [facility] | | | | + + + + + + + + + | Result panel 160 | + + + + + +-------+ + + | | 2022-07-29 | [facility] | 6.0 | (missing) | (missing) | | (unavailable | 14:30:07 | [facility] | | | | + + + +-------+ + + + + | Result panel 161 | + + + + + + + + + | | 2022-07-29 | [facility] | NEGATIVE | (missing) | (missing) | | (unavailable | 14:30:07 | [facility] | | | | + + + + + + + + + | Result panel 162 | + + + + + +-------+ + + | | 2022-07-29 | [facility] | 2.0 | (missing) | (missing) | | (unavailable | 14:30:07 | [facility] | | | | + + + +-------+ + + + + | Result panel 163 | + + + + + + + + + | | 2022-07-29 | [facility] | NEGATIVE | (missing) | (missing) | | (unavailable | 14:30:07 | [facility] | | | | + + + + + + + + + | Result panel 164 | + + + + + + + + + | | 2022-07-29 | [facility] | NEGATIVE | (missing) | (missing) | | (unavailable | 14:30:07 | [facility] | | | | + + + + + + + + + | Result panel 165 | + + + + + + + + + | | 2022-07-29 | [facility] | NEGATIVE | (missing) | (missing) | | (unavailable | 15:10:07 | [facility] | | | | + + + + + + + + + | Result panel 166 | + + + + + +--------+ + + | | 2022-08-11 | [facility] | 20.8 | (missing) | (missing) | | (unavailable | 17:58:07 | [facility] | | | | + + + +--------+ + + + + | Result panel 167 | + + + + + +------+ + + | | 2022-08-11 | [facility] | 85 | (missing) | (missing) | | (unavailable | 17:58:07 | [facility] | | | | + + + +------+ + + + + | Result panel 168 | + + + + + +------+ + + | | 2022-08-11 | [facility] | 10 | (missing) | (missing) | | (unavailable | 17:58:07 | [facility] | | | | + + + +------+ + + + + | Result panel 169 | + + + + + +-----+ + + | | 2022-08-11 | [facility] | 4 | (missing) | (missing) | | (unavailable | 17:58:07 | [facility] | | | | + + + +-----+ + + + + | Result panel 170 | + + + + + +-----+ + + | | 2022-08-11 | [facility] | 1 | (missing) | (missing) | | (unavailable | 17:58:07 | [facility] | | | | + + + +-----+ + + + + | Result panel 171 | + + + + + +-------+---------+ + | | 2022-08-11 | [facility] | 120 | mg/dL | (missing) | | (unavailable | 17:58:07 | [facility] | | | | + + + +-------+---------+ + + + | Result panel 172 | + + + + + +------+---------+ + | | 2022-08-11 | [facility] | 11 | mg/dL | (missing) | | (unavailable | 17:58:07 | [facility] | | | | + + + +------+---------+ + + + | Result panel 173 | + + + + + +--------+---------+ + | | 2022-08-11 | [facility] | 0.70 | mg/dL | (missing) | | (unavailable | 17:58:07 | [facility] | | | | + + + +--------+---------+ + + + | Result panel 174 | + + + + + +-------+ + + | | 2022-08-11 | [facility] | 127 | (missing) | (missing) | | (unavailable | 17:58:07 | [facility] | | | | + + + +-------+ + + + + | Result panel 175 | + + + + + +---------+ + + | | 2022-08-11 | [facility] | 15.71 | (missing) | (missing) | | (unavailable | 17:58:07 | [facility] | | | | + + + +---------+ + + + + | Result panel 176 | + + + + + +-------+ + + | | 2022-08-11 | [facility] | 140 | (missing) | (missing) | | (unavailable | 17:58:07 | [facility] | | | | + + + +-------+ + + + + | Result panel 177 | + + + + + +--------+ + + | | 2022-08-11 | [facility] | 4.59 | (missing) | (missing) | | (unavailable | 17:58:07 | [facility] | | | | + + + +--------+ + + + + | Result panel 178 | + + + + + +-------+ + + | | 2022-08-11 | [facility] | 3.6 | (missing) | (missing) | | (unavailable | 17:58:07 | [facility] | | | | + + + +-------+ + + + + | Result panel 179 | + + + + + +-------+ + + | | 2022-08-11 | [facility] | 103 | (missing) | (missing) | | (unavailable | 17:58:07 | [facility] | | | | + + + +-------+ + + + + | Result panel 180 | + + + + + +------+ + + | | 2022-08-11 | [facility] | 29 | (missing) | (missing) | | (unavailable | 17:58:07 | [facility] | | | | + + + +------+ + + + + | Result panel 181 | + + + + + +--------+ + + | | 2022-08-11 | [facility] | 11.6 | (missing) | (missing) | | (unavailable | 17:58:07 | [facility] | | | | + + + +--------+ + + + + | Result panel 182 | + + + + + +-------+---------+ + | | 2022-08-11 | [facility] | 9.2 | mg/dL | (missing) | | (unavailable | 17:58:07 | [facility] | | | | + + + +-------+---------+ + + + | Result panel 183 | + + + + + +-------+ + + | | 2022-08-11 | [facility] | 7.6 | (missing) | (missing) | | (unavailable | 17:58:07 | [facility] | | | | + + + +-------+ + + + + | Result panel 184 | + + + + + +-------+ + + | | 2022-08-11 | [facility] | 4.4 | (missing) | (missing) | | (unavailable | 17:58:07 | [facility] | | | | + + + +-------+ + + + + | Result panel 185 | + + + + + +-------+ + + | | 2022-08-11 | [facility] | 3.2 | (missing) | (missing) | | (unavailable | 17:58:07 | [facility] | | | | + + + +-------+ + + + + | Result panel 186 | + + + + + +--------+ + + | | 2022-08-11 | [facility] | 1.38 | (missing) | (missing) | | (unavailable | 17:58:07 | [facility] | | | | + + + +--------+ + + + + | Result panel 187 | + + + + + +-------+ + + | | 2022-08-11 | [facility] | 1.2 | (missing) | (missing) | | (unavailable | 17:58:07 | [facility] | | | | + + + +-------+ + + + + | Result panel 188 | + + + + + +--------+ + + | | 2022-08-11 | [facility] | 13.6 | (missing) | (missing) | | (unavailable | 17:58:07 | [facility] | | | | + + + +--------+ + + + + | Result panel 189 | + + + + + +------+ + + | | 2022-08-11 | [facility] | 13 | (missing) | (missing) | | (unavailable | 17:58:07 | [facility] | | | | + + + +------+ + + + + | Result panel 190 | + + + + + +------+ + + | | 2022-08-11 | [facility] | 15 | (missing) | (missing) | | (unavailable | 17:58:07 | [facility] | | | | + + + +------+ + + + + | Result panel 191 | + + + + + +------+ + + | | 2022-08-11 | [facility] | 76 | (missing) | (missing) | | (unavailable | 17:58:07 | [facility] | | | | + + + +------+ + + + + | Result panel 192 | + + + + + + + + + | | 2022-08-11 | [facility] | NEGATIVE | (missing) | (missing) | | (unavailable | 17:58:07 | [facility] | | | | + + + + + + + + + | Result panel 193 | + + + + + +--------+ + + | | 2022-08-11 | [facility] | 41.8 | (missing) | (missing) | | (unavailable | 17:58:07 | [facility] | | | | + + + +--------+ + + + + | Result panel 194 | + + + + + +--------+ + + | | 2022-08-11 | [facility] | 90.9 | (missing) | (missing) | | (unavailable | 17:58:07 | [facility] | | | | + + + +--------+ + + + + | Result panel 195 | + + + + + +--------+ + + | | 2022-08-11 | [facility] | 29.7 | (missing) | (missing) | | (unavailable | 17:58:07 | [facility] | | | | + + + +--------+ + + + + | Result panel 196 | + + + + + +--------+ + + | | 2022-08-11 | [facility] | 32.6 | (missing) | (missing) | | (unavailable | 17:58:07 | [facility] | | | | + + + +--------+ + + + + | Result panel 197 | + + + + + +--------+ + + | | 2022-08-11 | [facility] | 12.8 | (missing) | (missing) | | (unavailable | 17:58:07 | [facility] | | | | + + + +--------+ + + + + | Result panel 198 | + + + + + +-------+ + + | | 2022-08-11 | [facility] | 276 | (missing) | (missing) | | (unavailable | 17:58:07 | [facility] | | | | + + + +-------+ + + Social History No information. Vital Signs + + + +---------+ | date | measurement | value | units | + + + +---------+ | 2021-07-21 00:00 | BMI | 17.4 | kg/m2 | + + + +---------+ | 2021-07-21 00:00 | BP_diastolic | 65 | mmHg | + + + +---------+ | 2021-07-21 00:00 | BP_systolic | 106 | mmHg | + + + +---------+ | 2021-07-21 00:00 | heart_rate | 86 | /min | + + + +---------+ | 2021-07-21 00:00 | height_metric | 172.72 | cm | + + + +---------+ | 2021-07-21 00:00 | height_standard | 68 | in | + + + +---------+ | 2021-07-21 00:00 | o2_saturation | 100 | % | + + + +---------+ | 2021-07-21 00:00 | respiration_rate | 18 | /min | + + + +---------+ | 2021-07-21 00:00 | temperature_metric | 37 | C | | | | | | + + + +---------+ | 2021-07-21 00:00 | | 98.6 | F | | | temperature_standar | | | | | d | | | + + + +---------+ | 2021-07-21 00:00 | weight_metric | 51.9 | kg | + + + +---------+ | 2021-07-21 00:00 | weight_standard | 114.42 | lb | + + + +---------+ | 2022-01-02 00:00 | BMI | 20.8 | kg/m2 | + + + +---------+ | 2022-01-02 00:00 | BP_diastolic | 71 | mmHg | + + + +---------+ | 2022-01-02 00:00 | BP_systolic | 108 | mmHg | + + + +---------+ | 2022-01-02 00:00 | heart_rate | 78 | /min | + + + +---------+ | 2022-01-02 00:00 | height_metric | 165.1 | cm | + + + +---------+ | 2022-01-02 00:00 | height_standard | 65 | in | + + + +---------+ | 2022-01-02 00:00 | o2_saturation | 98 | % | + + + +---------+ | 2022-01-02 00:00 | respiration_rate | 16 | /min | + + + +---------+ | 2022-01-02 00:00 | temperature_metric | 37.06 | C | | | | | | + + + +---------+ | 2022-01-02 00:00 | | 98.7 | F | | | temperature_standar | | | | | d | | | + + + +---------+ | 2022-01-02 00:00 | weight_metric | 56.6 | kg | + + + +---------+ | 2022-01-02 00:00 | weight_standard | 124.78 | lb | + + + +---------+ | 2022-01-07 00:00 | BMI | 20.1 | kg/m2 | + + + +---------+ | 2022-01-07 00:00 | BP_diastolic | 71 | mmHg | + + + +---------+ | 2022-01-07 00:00 | BP_systolic | 112 | mmHg | + + + +---------+ | 2022-01-07 00:00 | heart_rate | 77 | /min | + + + +---------+ | 2022-01-07 00:00 | height_metric | 165.1 | cm | + + + +---------+ | 2022-01-07 00:00 | height_standard | 65 | in | + + + +---------+ | 2022-01-07 00:00 | o2_saturation | 99 | % | + + + +---------+ | 2022-01-07 00:00 | respiration_rate | 15 | /min | + + + +---------+ | 2022-01-07 00:00 | temperature_metric | 37.11 | C | | | | | | + + + +---------+ | 2022-01-07 00:00 | | 98.8 | F | | | temperature_standar | | | | | d | | | + + + +---------+ | 2022-01-07 00:00 | weight_metric | 54.88 | kg | + + + +---------+ | 2022-01-07 00:00 | weight_standard | 121 | lb | + + + +---------+ | 2022-03-08 00:00 | BMI | 18.6 | kg/m2 | + + + +---------+ | 2022-03-08 00:00 | BP_diastolic | 70 | mmHg | + + + +---------+ | 2022-03-08 00:00 | BP_systolic | 99 | mmHg | + + + +---------+ | 2022-03-08 00:00 | heart_rate | 75 | /min | + + + +---------+ | 2022-03-08 00:00 | height_metric | 175.26 | cm | + + + +---------+ | 2022-03-08 00:00 | height_standard | 69 | in | + + + +---------+ | 2022-03-08 00:00 | o2_saturation | 99 | % | + + + +---------+ | 2022-03-08 00:00 | respiration_rate | 16 | /min | + + + +---------+ | 2022-03-08 00:00 | temperature_metric | 36.72 | C | | | | | | + + + +---------+ | 2022-03-08 00:00 | | 98.1 | F | | | temperature_standar | | | | | d | | | + + + +---------+ | 2022-03-08 00:00 | weight_metric | 57 | kg | + + + +---------+ | 2022-03-08 00:00 | weight_standard | 125.66 | lb | + + + +---------+ | 2022-07-29 00:00 | BMI | 16.2 | kg/m2 | + + + +---------+ | 2022-07-29 00:00 | BP_diastolic | 84 | mmHg | + + + +---------+ | 2022-07-29 00:00 | BP_systolic | 103 | mmHg | + + + +---------+ | 2022-07-29 00:00 | heart_rate | 94 | /min | + + + +---------+ | 2022-07-29 00:00 | height_metric | 175.26 | cm | + + + +---------+ | 2022-07-29 00:00 | height_standard | 69 | in | + + + +---------+ | 2022-07-29 00:00 | o2_saturation | 99 | % | + + + +---------+ | 2022-07-29 00:00 | respiration_rate | 99 | /min | + + + +---------+ | 2022-07-29 00:00 | temperature_metric | 37.28 | C | | | | | | + + + +---------+ | 2022-07-29 00:00 | | 99.1 | F | | | temperature_standar | | | | | d | | | + + + +---------+ | 2022-07-29 00:00 | weight_metric | 49.9 | kg | + + + +---------+ | 2022-07-29 00:00 | weight_standard | 110 | lb | + + + +---------+ | 2022-07-29 00:00 | weight_standard | 110.01 | lb | + + + +---------+ | 2022-08-11 00:00 | BMI | 16.9 | kg/m2 | + + + +---------+ | 2022-08-11 00:00 | BP_diastolic | 71 | mmHg | + + + +---------+ | 2022-08-11 00:00 | BP_systolic | 93 | mmHg | + + + +---------+ | 2022-08-11 00:00 | heart_rate | 86 | /min | + + + +---------+ | 2022-08-11 00:00 | height_metric | 175.26 | cm | + + + +---------+ | 2022-08-11 00:00 | height_standard | 69 | in | + + + +---------+ | 2022-08-11 00:00 | o2_saturation | 98 | % | + + + +---------+ | 2022-08-11 00:00 | respiration_rate | 16 | /min | + + + +---------+ | 2022-08-11 00:00 | temperature_metric | 36.83 | C | | | | | | + + + +---------+ | 2022-08-11 00:00 | | 98.3 | F | | | temperature_standar | | | | | d | | | + + + +---------+ | 2022-08-11 00:00 | weight_metric | 51.9 | kg | + + + +---------+ | 2022-08-11 00:00 | weight_standard | 114.42 | lb | + + + +---------+"
--- OUTSIDE RECORDS SUMMARY | ~2022-12-30 | XMS | Continuity of Care Document ---
Demographics + + + | Address | [address] | | | [place] [address] | + + + | Preferred Language | Unknown | + + + | Marital Status | Never | + + + | Gnosticism Affiliation | Unknown | + + + | Race | White | + + + | Ethnic Group | Not or | + + + Author + + + | Author | [place] | + + + | Organization | [place] | + + + | Address | [address] | | | [place] [address] | + + + | Phone | | + + + Care Team Providers + + + + | Care Paint Laboratory Technician Name | Role | Phone | + [...] | 2022-01-02 00:00 | FLUOXETINE HCL | [facility] | + + + + | 2022-01-07 00:00 | FLUOXETINE HCL | [facility] | + + + + | 2022-03-08 00:00 | FLUOXETINE HCL | [facility] | + + + + | 2022-07-29 00:00 | FLUOXETINE HCL | [facility] | + + + + | 2022-08-11 00:00 | FLUOXETINE HCL | [facility] | + + + + | 2022-07-29 00:00 | ONDANSETRON | [facility] | + + + + | 2022-01-02 00:00 | HYDROCODONE/ACETAMINOPHEN | [facility] | + + + + | 2022-01-07 00:00 | HYDROCODONE/ACETAMINOPHEN | [facility] | + + + + | 2022-03-08 00:00 | HYDROCODONE/ACETAMINOPHEN | [facility] | + + + + | 2022-07-29 00:00 | HYDROCODONE/ACETAMINOPHEN | [facility] | + + + + | 2022-08-11 00:00 | HYDROCODONE/ACETAMINOPHEN | [facility] | + + + + | 2017-07-07 00:00 | AZITHROMYCIN | [facility] | + + + + | 2017-07-07 00:00 | AZITHROMYCIN | [facility] | + + + + | 2017-07-07 00:00 | AZITHROMYCIN | [facility] | + + + + | 2022-01-02 00:00 | FLUOXETINE HCL | [facility] | + + + + | 2022-01-07 00:00 | FLUOXETINE HCL | [facility] | + + + + | 2022-03-08 00:00 | FLUOXETINE HCL | [facility] | + + + + | 2022-01-02 00:00 | ACETAMINOPHEN | [facility] | + + + + | 2022-01-07 00:00 | ACETAMINOPHEN | [facility] | + + + + | 2022-03-08 00:00 | ACETAMINOPHEN | [facility] | + + + + | 2022-07-29 00:00 | ACETAMINOPHEN | [facility] | + + + + | 2022-08-11 00:00 | ACETAMINOPHEN | [facility] | + + + + | 2018-08-15 00:00 | ONDANSETRON | [facility] | + + + + | 2018-08-15 00:00 | ONDANSETRON | [facility] | + + + + | 2018-08-15 00:00 | ONDANSETRON | [facility] | + + + + | 2020-08-17 00:00 | ONDANSETRON | [facility] | + + + + | 2020-08-17 00:00 | ONDANSETRON | [facility] | + + + + | 2020-08-17 00:00 | ONDANSETRON | [facility] | + + + + | 2021-07-21 00:00 | ONDANSETRON | [facility] | + + + + | 2021-07-21 00:00 | ONDANSETRON | [facility] | + + + + | 2021-07-21 00:00 | ONDANSETRON | [facility] | + + + + | 2022-08-11 00:00 | ONDANSETRON | [facility] | + + + + | 2022-07-29 00:00 | OMEPRAZOLE MAGNESIUM | [facility] | + + + + | 2022-01-02 00:00 | ONDANSETRON | [facility] | + + + + | 2022-01-07 00:00 | ONDANSETRON | [facility] | + + + + | 2022-03-08 00:00 | ONDANSETRON | [facility] | + + + + | 2022-07-29 00:00 | ONDANSETRON | [facility] | + + + + | 2022-08-11 00:00 | ONDANSETRON | [facility] | + + + + Problems + + + + | date | description | facility | + + + + | 2014-07-25 00:00 | Upper respiratory | [facility] | | | infection | | + + + + | 2014-07-25 00:00 | Upper respiratory | [facility] | | | infection | | + + + + | 2014-07-25 00:00 | Upper respiratory | [facility] | | | infection | | + + + + | 2015-06-10 00:00 | Acute streptococcal | [facility] | | | pharyngitis | | + + + + | 2015-06-10 00:00 | Acute streptococcal | [facility] | | | pharyngitis | | + + + + | 2015-06-10 00:00 | Acute streptococcal | [facility] | | | pharyngitis | | + + + + | 2015-11-14 00:00 | Dehydration | [facility] | + + + + | 2015-11-14 00:00 | Dehydration | [facility] | + + + + | 2015-11-14 00:00 | Dehydration | [facility] | + + + + | 2015-11-14 00:00 | Postoperative pain | [facility] | + + + + | 2015-11-14 00:00 | Postoperative pain | [facility] | + + + + | 2015-11-14 00:00 | Postoperative pain | [facility] | + + + + | 2017-07-07 00:00 | Pharyngitis due to | [facility] | | | Streptococcus species | | + + + + | 2017-07-07 00:00 | Pharyngitis due to | [facility] | | | Streptococcus species | | + + + + | 2017-07-07 00:00 | Pharyngitis due to | [facility] | | | Streptococcus species | | + + + + | 2017-10-27 00:00 | Patient left without being | [facility] | | | seen | | + + + + | 2017-10-27 00:00 | Patient left without being | [facility] | | | seen | | + + + + | 2017-10-27 00:00 | Patient left without being | [facility] | | | seen | | + + + + | 2018-06-01 00:00 | Sprain of right wrist | [facility] | + + + + | 2018-06-01 00:00 | Sprain of right wrist | [facility] | + + + + | 2018-06-01 00:00 | Sprain of right wrist | [facility] | + + + + | 2018-08-15 00:00 | Abdominal pain | [facility] | + + + + | 2018-08-15 00:00 | Abdominal pain | [facility] | + + + + | 2018-08-15 00:00 | Abdominal pain | [facility] | + + + + | 2018-09-03 00:00 | Sprain of right ankle | [facility] | + + + + | 2018-09-03 00:00 | Sprain of right ankle | [facility] | + + + + | 2018-09-03 00:00 | Sprain of right ankle | [facility] | + + + + | 2019-05-12 00:00 | Upper respiratory tract | [facility] | | | infection | | + + + + | 2019-05-12 00:00 | Upper respiratory tract | [facility] | | | infection | | + + + + | 2019-05-12 00:00 | Upper respiratory tract | [facility] | | | infection | | + + + + | 2020-08-17 00:00 | Viral infection | [facility] | + + + + | 2020-08-17 00:00 | Viral infection | [facility] | + + + + | 2020-08-17 00:00 | Viral infection | [facility] | + + + + | 2020-12-01 00:00 | Right upper quadrant | [facility] | | | abdominal pain | | + + + + | 2020-12-01 00:00 | Right upper quadrant | [facility] | | | abdominal pain | | + + + + | 2020-12-01 00:00 | Right upper quadrant | [facility] | | | abdominal pain | | + + + + | 2021-07-21 00:00 | Gastroenteritis | [facility] | + + + + | 2021-07-21 00:00 | Gastroenteritis | [facility] | + + + + | 2021-07-21 00:00 | Gastroenteritis | [facility] | + + + + | 2022-01-02 00:00 | Encounter for medical | [facility] | | | screening examination | | + + + + | 2022-01-02 00:00 | Encounter for medical | [facility] | | | screening examination | | + + + + | 2022-01-02 00:00 | Encounter for medical | [facility] | | | screening examination | | + + + + | 2022-01-07 00:00 | Enterocolitis | [facility] | + + + + | 2022-01-07 00:00 | Enterocolitis | [facility] | + + + + | 2022-01-07 00:00 | Enterocolitis | [facility] | + + + + | 2022-03-08 00:00 | Multiple contusions | [facility] | + + + + | 2022-03-08 00:00 | Multiple contusions | [facility] | + + + + | 2022-03-08 00:00 | Multiple contusions | [facility] | + + + + | 2022-07-29 00:00 | Gastritis | [facility] | + + + + | 2022-07-29 00:00 | Gastritis | [facility] | + + + + | 2022-08-11 [...] (missing) | | (unavailable | 14:29:07 | [place] | | | | | [...]
[2022-12-30 10:16] VITALS: BP 103/69
== END 2022-12-30 10:27 | disposition home or self-care (01) ==
LOC: ED 09:35
DX: J06.9 Acute upper respiratory infection, unspecified (principal); Z88.0 Allergy status to penicillin
CPT/HCPCS: 99283

== ENCOUNTER 2023-01-01 17:54 | Emergency (ER) | payer OTHER ==
[~2023-01-01] VITALS: Ht 175.3 cm; Wt 49.7 kg
--- OUTSIDE RECORDS SUMMARY | ~2023-01-01 | XMS | Continuity of Care Document ---
Demographics + + + | Address | [address] | | | [place] [address] | + + + | Preferred Language | Unknown | + + + | Marital Status | Never | + + + | Presybeterian Affiliation | Unknown | + + + | Race | White | + + + | Ethnic Group | Not or | + + + Author + + + | Author | [facility] | + + + | Organization | [facility] | + + + | Address | [address] | | | [place] [address] | + + + | Phone | | + + + Care Team Providers + + + + | Care Rack Maker Name | Role | Phone | + [...] + + + | (no date) | Penicillins | [facility] | (no reaction) | (no severity) | + + + + + + [...] | 2022-01-02 00:00 | FLUOXETINE HCL | [facility] | + + + + | 2022-01-07 00:00 | FLUOXETINE HCL | [facility] | + + + + | 2022-03-08 00:00 | FLUOXETINE HCL | [facility] | + + + + | 2022-07-29 00:00 | FLUOXETINE HCL | [facility] | + + + + | 2022-08-11 00:00 | FLUOXETINE HCL | [facility] | + + + + | 2022-12-30 00:00 | FLUOXETINE HCL | [facility] | + + + + | 2022-07-29 00:00 | ONDANSETRON | [facility] | + + + + | 2022-01-02 00:00 | HYDROCODONE/ACETAMINOPHEN | [facility] | + + + + | 2022-01-07 00:00 | HYDROCODONE/ACETAMINOPHEN | [facility] | + + + + | 2022-03-08 00:00 | HYDROCODONE/ACETAMINOPHEN | [facility] | + + + + | 2022-07-29 00:00 | HYDROCODONE/ACETAMINOPHEN | [facility] | + + + + | 2022-08-11 00:00 | HYDROCODONE/ACETAMINOPHEN | [facility] | + + + + | 2022-12-30 00:00 | HYDROCODONE/ACETAMINOPHEN | [facility] | + + + + | 2017-07-07 00:00 | AZITHROMYCIN | [facility] | + + + + | 2017-07-07 00:00 | AZITHROMYCIN | [facility] | + + + + | 2017-07-07 00:00 | AZITHROMYCIN | [facility] | + + + + | 2022-01-02 00:00 | FLUOXETINE HCL | [facility] | + + + + | 2022-01-07 00:00 | FLUOXETINE HCL | [facility] | + + + + | 2022-03-08 00:00 | FLUOXETINE HCL | [facility] | + + + + | 2022-01-02 00:00 | ACETAMINOPHEN | [facility] | + + + + | 2022-01-07 00:00 | ACETAMINOPHEN | [facility] | + + + + | 2022-03-08 00:00 | ACETAMINOPHEN | [facility] | + + + + | 2022-07-29 00:00 | ACETAMINOPHEN | [facility] | + + + + | 2022-08-11 00:00 | ACETAMINOPHEN | [facility] | + + + + | 2022-12-30 00:00 | ACETAMINOPHEN | [facility] | + + + + | 2018-08-15 00:00 | ONDANSETRON | [facility] | + + + + | 2018-08-15 00:00 | ONDANSETRON | [facility] | + + + + | 2018-08-15 00:00 | ONDANSETRON | [facility] | + + + + | 2020-08-17 00:00 | ONDANSETRON | [facility] | + + + + | 2020-08-17 00:00 | ONDANSETRON | [facility] | + + + + | 2020-08-17 00:00 | ONDANSETRON | [facility] | + + + + | 2021-07-21 00:00 | ONDANSETRON | [facility] | + + + + | 2021-07-21 00:00 | ONDANSETRON | [facility] | + + + + | 2021-07-21 00:00 | ONDANSETRON | [facility] | + + + + | 2022-08-11 00:00 | ONDANSETRON | [facility] | + + + + | 2022-07-29 00:00 | OMEPRAZOLE MAGNESIUM | [facility] | + + + + | 2022-01-02 00:00 | ONDANSETRON | [facility] | + + + + | 2022-01-07 00:00 | ONDANSETRON | [facility] | + + + + | 2022-03-08 00:00 | ONDANSETRON | [facility] | + + + + | 2022-07-29 00:00 | ONDANSETRON | [facility] | + + + + | 2022-08-11 00:00 | ONDANSETRON | [facility] | + + + + | 2022-12-30 00:00 | ONDANSETRON | [facility] | + + + + Problems + + + + | date | description | facility | + + + + | 2014-07-25 00:00 | Upper respiratory | [facility] | | | infection | | + + + + | 2014-07-25 00:00 | Upper respiratory | [facility] | | | infection | | + + + + | 2014-07-25 00:00 | Upper respiratory | [facility] | | | infection | | + + + + | 2015-06-10 00:00 | Acute streptococcal | [facility] | | | pharyngitis | | + + + + | 2015-06-10 00:00 | Acute streptococcal | [facility] | | | pharyngitis | | + + + + | 2015-06-10 00:00 | Acute streptococcal | [facility] | | | pharyngitis | | + + + + | 2015-11-14 00:00 | Dehydration | [facility] | + + + + | 2015-11-14 00:00 | Dehydration | [facility] | + + + + | 2015-11-14 00:00 | Dehydration | [facility] | + + + + | 2015-11-14 00:00 | Postoperative pain | [facility] | + + + + | 2015-11-14 00:00 | Postoperative pain | [facility] | + + + + | 2015-11-14 00:00 | Postoperative pain | [facility] | + + + + | 2017-07-07 00:00 | Pharyngitis due to | [facility] | | | Streptococcus species | | + + + + | 2017-07-07 00:00 | Pharyngitis due to | [facility] | | | Streptococcus species | | + + + + | 2017-07-07 00:00 | Pharyngitis due to | [facility] | | | Streptococcus species | | + + + + | 2017-10-27 00:00 | Patient left without being | [facility] | | | seen | | + + + + | 2017-10-27 00:00 | Patient left without being | [facility] | | | seen | | + + + + | 2017-10-27 00:00 | Patient left without being | [facility] | | | seen | | + + + + | 2018-06-01 00:00 | Sprain of right wrist | [facility] | + + + + | 2018-06-01 00:00 | Sprain of right wrist | [facility] | + + + + | 2018-06-01 00:00 | Sprain of right wrist | [facility] | + + + + | 2018-08-15 00:00 | Abdominal pain | [facility] | + + + + | 2018-08-15 00:00 | Abdominal pain | [facility] | + + + + | 2018-08-15 00:00 | Abdominal pain | [facility] | + + + + | 2018-09-03 00:00 | Sprain of right ankle | [facility] | + + + + | 2018-09-03 00:00 | Sprain of right ankle | [facility] | + + + + | 2018-09-03 00:00 | Sprain of right ankle | [facility] | + + + + | 2019-05-12 00:00 | Upper respiratory tract | [facility] | | | infection | | + + + + | 2019-05-12 00:00 | Upper respiratory tract | [facility] | | | infection | | + + + + | 2019-05-12 00:00 | Upper respiratory tract | [facility] | | | infection | | + + + + | 2020-08-17 00:00 | Viral infection | [facility] | + + + + | 2020-08-17 00:00 | Viral infection | [facility] | + + + + | 2020-08-17 00:00 | Viral infection | [facility] | + + + + | 2020-12-01 00:00 | Right upper quadrant | [facility] | | | abdominal pain | | + + + + | 2020-12-01 00:00 | Right upper quadrant | [facility] | | | abdominal pain | | + + + + | 2020-12-01 00:00 | Right upper quadrant | [facility] | | | abdominal pain | | + + + + | 2021-07-21 00:00 | Gastroenteritis | [facility] | + + + + | 2021-07-21 00:00 | Gastroenteritis | [facility] | + + + + | 2021-07-21 00:00 | Gastroenteritis | [facility] | + + + + | 2022-01-02 00:00 | Encounter for medical | [facility] | | | screening examination | | + + + + | 2022-01-02 00:00 | Encounter for medical | [facility] | | | screening examination | | + + + + | 2022-01-02 00:00 | Encounter for medical | [facility] | | | screening examination | | + + + + | 2022-01-07 00:00 | Enterocolitis | [facility] | + + + + | 2022-01-07 00:00 | Enterocolitis | [facility] | + + + + | 2022-01-07 00:00 | Enterocolitis | [facility] | + + + + | 2022-01-07 09:19 | NONINFECTIVE | [facility] | | | GASTROENTERITIS AND | | | | COLITIS, UNSPECIF | | + + + + | 2022-01-07 09:19 | UNSPECIFIED ABDOMINAL PAIN | [facility] | | | | | + + + + | 2022-01-07 09:19 | OTHER [facility] (CURRENT) | [facility] | | | DRUG THERAPY | | + + + + | 2022-01-07 09:19 | ALLERGY STATUS TO | [facility] | | | PENICILLIN | | + + + + | 2022-03-08 00:00 | Multiple contusions | [facility] | + + + + | 2022-03-08 00:00 | Multiple contusions | [facility] | + + + + | 2022-03-08 00:00 | Multiple contusions | [facility] | + + + + | 2022-03-08 20:54 | PAIN IN LEFT HIP | [facility] | + + + + | 2022-03-08 20:54 | ABRASION, RIGHT KNEE, | [facility] | | | INITIAL ENCOUNTER | | + + + + | 2022-03-08 20:54 | FALL SAME LEV FROM | [facility] | | | SLIP/TRIP W/O STRIKE | | | | AGAINST OB | | + + + + | 2022-03-08 20:54 | ACTIVITY, BASKETBALL | [facility] | + + + + | 2022-03-08 20:54 | ALLERGY STATUS TO | [facility] | | | PENICILLIN | | + + + + | 2022-07-29 00:00 | Gastritis | [facility] | + + + + | 2022-07-29 00:00 | Gastritis | [facility] | + + + + | 2022-07-29 13:29 | GASTRITIS, UNSPECIFIED, | [facility] | | | WITHOUT BLEEDING | | + + + + | 2022-07-29 13:29 | EPIGASTRIC PAIN | [facility] | + + + + | 2022-07-29 13:29 | ALLERGY STATUS TO | [facility] | | | PENICILLIN | | + + + + | [...] (missing) | (missing) | | (unavailable | 14::07 | [facility] | | | | | [...] lb | + + + +---------+ | 2022-12-30 00:00 | BMI | 16.6 | kg/m2 | + + + +---------+ | 2022-12-30 00:00 | BP_diastolic | 69 | mmHg | + + + +---------+ | 2022-12-30 00:00 | BP_systolic | 103 | mmHg | + + + +---------+ | 2022-12-30 00:00 | heart_rate | 95 | /min | + + + +---------+ | 2022-12-30 00:00 | height_metric | 175.26 | cm | + + + +---------+ | 2022-12-30 00:00 | height_standard | 69 | in | + + + +---------+ | 2022-12-30 00:00 | o2_saturation | 100 | % | + + + +---------+ | 2022-12-30 00:00 | respiration_rate | 20 | /min | + + + +---------+ | 2022-12-30 00:00 | temperature_metric | 37 | C | | | | | | + + + +---------+ | 2022-12-30 00:00 | | 98.6 | F | | | temperature_standar | | | | | d | | | + + + +---------+ | 2022-12-30 00:00 | weight_metric | 50.97 | kg | + + + +---------+ | 2022-12-30 00:00 | weight_standard | 112.37 | lb | + + + +---------+ | 2022-12-30 00:00 | weight_standard | 112.38 | lb | + + + +---------+"
--- OUTSIDE RECORDS SUMMARY | ~2023-01-01 | XMS | Continuity of Care Document ---
Demographics + + + | Address | [address] | | | [place] [address] | + + + | Preferred Language | Unknown | + + + | Marital Status | Never | + + + | Latter Day Affiliation | Unknown | + + + | Race | White | + + + | Ethnic Group | Not or | + + + Author + + + | Author | [facility] | + + + | Organization | [facility] | + + + | Address | [address] | | | [place] [address] | + + + | Phone | | + + + Care Team Providers + + + + | Care News Video Editor Name | Role | Phone | + [...] | 2022-01-02 00:00 | FLUOXETINE HCL | [facility] | + + + + | 2022-01-07 00:00 | FLUOXETINE HCL | [facility] | + + + + | 2022-03-08 00:00 | FLUOXETINE HCL | [facility] | + + + + | 2022-07-29 00:00 | FLUOXETINE HCL | [facility] | + + + + | 2022-08-11 00:00 | FLUOXETINE HCL | [facility] | + + + + | 2022-12-30 00:00 | FLUOXETINE HCL | [facility] | + + + + | 2022-07-29 00:00 | ONDANSETRON | [facility] | + + + + | 2022-01-02 00:00 | HYDROCODONE/ACETAMINOPHEN | [facility] | + + + + | 2022-01-07 00:00 | HYDROCODONE/ACETAMINOPHEN | [facility] | + + + + | 2022-03-08 00:00 | HYDROCODONE/ACETAMINOPHEN | [facility] | + + + + | 2022-07-29 00:00 | HYDROCODONE/ACETAMINOPHEN | [facility] | + + + + | 2022-08-11 00:00 | HYDROCODONE/ACETAMINOPHEN | [facility] | + + + + | 2022-12-30 00:00 | HYDROCODONE/ACETAMINOPHEN | [facility] | + + + + | 2017-07-07 00:00 | AZITHROMYCIN | [facility] | + + + + | 2017-07-07 00:00 | AZITHROMYCIN | [facility] | + + + + | 2017-07-07 00:00 | AZITHROMYCIN | [facility] | + + + + | 2022-01-02 00:00 | FLUOXETINE HCL | [facility] | + + + + | 2022-01-07 00:00 | FLUOXETINE HCL | [facility] | + + + + | 2022-03-08 00:00 | FLUOXETINE HCL | [facility] | + + + + | 2022-01-02 00:00 | ACETAMINOPHEN | [facility] | + + + + | 2022-01-07 00:00 | ACETAMINOPHEN | [facility] | + + + + | 2022-03-08 00:00 | ACETAMINOPHEN | [facility] | + + + + | 2022-07-29 00:00 | ACETAMINOPHEN | [facility] | + + + + | 2022-08-11 00:00 | ACETAMINOPHEN | [facility] | + + + + | 2022-12-30 00:00 | ACETAMINOPHEN | [facility] | + + + + | 2018-08-15 00:00 | ONDANSETRON | [facility] | + + + + | 2018-08-15 00:00 | ONDANSETRON | [facility] | + + + + | 2018-08-15 00:00 | ONDANSETRON | [facility] | + + + + | 2020-08-17 00:00 | ONDANSETRON | [facility] | + + + + | 2020-08-17 00:00 | ONDANSETRON | [facility] | + + + + | 2020-08-17 00:00 | ONDANSETRON | [facility] | + + + + | 2021-07-21 00:00 | ONDANSETRON | [facility] | + + + + | 2021-07-21 00:00 | ONDANSETRON | [facility] | + + + + | 2021-07-21 00:00 | ONDANSETRON | [facility] | + + + + | 2022-08-11 00:00 | ONDANSETRON | [facility] | + + + + | 2022-07-29 00:00 | OMEPRAZOLE MAGNESIUM | [facility] | + + + + | 2022-01-02 00:00 | ONDANSETRON | [facility] | + + + + | 2022-01-07 00:00 | ONDANSETRON | [facility] | + + + + | 2022-03-08 00:00 | ONDANSETRON | [facility] | + + + + | 2022-07-29 00:00 | ONDANSETRON | [facility] | + + + + | 2022-08-11 00:00 | ONDANSETRON | [facility] | + + + + | 2022-12-30 00:00 | ONDANSETRON | [facility] | + + + + Problems + + + + | date | description | facility | + + + + | 2014-07-25 00:00 | Upper respiratory | [facility] | | | infection | | + + + + | 2014-07-25 00:00 | Upper respiratory | [facility] | | | infection | | + + + + | 2014-07-25 00:00 | Upper respiratory | [facility] | | | infection | | + + + + | 2015-06-10 00:00 | Acute streptococcal | [facility] | | | pharyngitis | | + + + + | 2015-06-10 00:00 | Acute streptococcal | [facility] | | | pharyngitis | | + + + + | 2015-06-10 00:00 | Acute streptococcal | [facility] | | | pharyngitis | | + + + + | 2015-11-14 00:00 | Dehydration | [facility] | + + + + | 2015-11-14 00:00 | Dehydration | [facility] | + + + + | 2015-11-14 00:00 | Dehydration | [facility] | + + + + | 2015-11-14 00:00 | Postoperative pain | [facility] | + + + + | 2015-11-14 00:00 | Postoperative pain | [facility] | + + + + | 2015-11-14 00:00 | Postoperative pain | [facility] | + + + + | 2017-07-07 00:00 | Pharyngitis due to | [facility] | | | Streptococcus species | | + + + + | 2017-07-07 00:00 | Pharyngitis due to | [facility] | | | Streptococcus species | | + + + + | 2017-07-07 00:00 | Pharyngitis due to | [facility] | | | Streptococcus species | | + + + + | 2017-10-27 00:00 | Patient left without being | [facility] | | | seen | | + + + + | 2017-10-27 00:00 | Patient left without being | [facility] | | | seen | | + + + + | 2017-10-27 00:00 | Patient left without being | [facility] | | | seen | | + + + + | 2018-06-01 00:00 | Sprain of right wrist | [facility] | + + + + | 2018-06-01 00:00 | Sprain of right wrist | [facility] | + + + + | 2018-06-01 00:00 | Sprain of right wrist | [facility] | + + + + | 2018-08-15 00:00 | Abdominal pain | [facility] | + + + + | 2018-08-15 00:00 | Abdominal pain | [facility] | + + + + | 2018-08-15 00:00 | Abdominal pain | [facility] | + + + + | 2018-09-03 00:00 | Sprain of right ankle | [facility] | + + + + | 2018-09-03 00:00 | Sprain of right ankle | [facility] | + + + + | 2018-09-03 00:00 | Sprain of right ankle | [facility] | + + + + | 2019-05-12 00:00 | Upper respiratory tract | [facility] | | | infection | | + + + + | 2019-05-12 00:00 | Upper respiratory tract | [facility] | | | infection | | + + + + | 2019-05-12 00:00 | Upper respiratory tract | [facility] | | | infection | | + + + + | 2020-08-17 00:00 | Viral infection | [facility] | + + + + | 2020-08-17 00:00 | Viral infection | [facility] | + + + + | 2020-08-17 00:00 | Viral infection | [facility] | + + + + | 2020-12-01 00:00 | Right upper quadrant | [facility] | | | abdominal pain | | + + + + | 2020-12-01 00:00 | Right upper quadrant | [facility] | | | abdominal pain | | + + + + | 2020-12-01 00:00 | Right upper quadrant | [facility] | | | abdominal pain | | + + + + | 2021-07-21 00:00 | Gastroenteritis | [facility] | + + + + | 2021-07-21 00:00 | Gastroenteritis | [facility] | + + + + | 2021-07-21 00:00 | Gastroenteritis | [facility] | + + + + | 2022-01-02 00:00 | Encounter for medical | [facility] | | | screening examination | | + + + + | 2022-01-02 00:00 | Encounter for medical | [facility] | | | screening examination | | + + + + | 2022-01-02 00:00 | Encounter for medical | [facility] | | | screening examination | | + + + + | 2022-01-07 00:00 | Enterocolitis | [facility] | + + + + | 2022-01-07 00:00 | Enterocolitis | [facility] | + + + + | 2022-01-07 00:00 | Enterocolitis | [facility] | + + + + | 2022-01-07 09:19 | NONINFECTIVE | [facility] | | | GASTROENTERITIS AND | | | | COLITIS, UNSPECIF | | + + + + | 2022-01-07 09:19 | UNSPECIFIED ABDOMINAL PAIN | [facility] | | | | | + + + + | 2022-01-07 09:19 | OTHER SENIOR CARE (CURRENT) | [facility] | | | DRUG THERAPY | | + + + + | 2022-01-07 09:19 | ALLERGY STATUS TO | [facility] | | | PENICILLIN | | + + + + | 2022-03-08 00:00 | Multiple contusions | [facility] | + + + + | 2022-03-08 00:00 | Multiple contusions | [facility] | + + + + | 2022-03-08 00:00 | Multiple contusions | [facility] | + + + + | [...] + | 2022-07-29 00:00 | Gastritis | [facility] | + + + + | 2022-07-29 00:00 | Gastritis | [facility] | + + + + | [...] (missing) | | (unavailable | 06:48 | [facility] | | | | | ) | [...] (missing) | | (unavailable | 17:58:07 | [facility] | | | | | ) | [...]
[2023-01-01] MEDS ORDERED: FLUOXETINE HCL20 M1 PO (18:02)
--- OUTSIDE RECORDS SUMMARY | 2023-01-01 18:03 | XMS ---
PreManage Notification: [place] [employer] Events No recent Security Events currently on file CRITERIA MET - [facility] - 2 Visits in 30 Days CARE PROVIDERS BHARATHI ROWLAND Nurse Practitioner: Family 09/06/2018-Current PHONE: Unknown -[place]- Dentist: Biostatistics Manager [facility] PHONE: [phone] [place] has no Care Guidelines for this patient. Care History Medical/Surgical 09/06/2018 [facility] - Patient is currently established with [facility]. If patient is seen in the ED during business hours. Please contact [facility] at [facility]. Care Recommendation: This patient has had [...] providing care. E.D. VISIT COUNT (12 MO.) [address] [facility] TOTAL 7 NOTE: Visits indicate total known visits. ED/UCC VISIT TRACKING (12 MO.) 01/01/2023 17:54 [facility] TYPE: Emergency COMPLAINT: - ABDOMINAL PAIN 12/30/2022 09:36 [facility] TYPE: Emergency COMPLAINT: - SORE THROAT, NAUSEA 08/11/2022 17:36 [facility] TYPE: Emergency COMPLAINT: - N/V 3 HOURS DIAGNOSES: - Allergy status to penicillin - Nausea with vomiting, unspecified - Noninfective gastroenteritis and colitis, unspecified 07/29/2022 13:29 [facility] TYPE: Emergency COMPLAINT: - ABD PAIN, NAUSEA DIAGNOSES: - Allergy status to penicillin - Epigastric pain - Gastritis, unspecified, without bleeding 03/08/2022 20:54 [facility] TYPE: Emergency COMPLAINT: - FELL MULTI INJURIES DIAGNOSES: - Abrasion, right knee, initial encounter - Activity, basketball - Allergy status to penicillin - Essential (primary) hypertension - Fall on same level from slipping, tripping and stumbling without subsequent striking against object, initial encounter - Pain in left hip 01/07/2022 09:19 [facility] TYPE: Emergency COMPLAINT: - ABD PAIN, DIARRHEA, NAUSEA DIAGNOSES: - Allergy status to penicillin - Noninfective gastroenteritis and colitis, unspecified - Other long-term (current) drug therapy - Unspecified abdominal pain 01/02/2022 11:20 [facility] TYPE: Emergency COMPLAINT: - FINGER INJURY INPATIENT VISIT TRACKING (12 MO.) No inpatient visits to display in this time frame [email or web address]
[2023-01-01 18:18] LABS: HEMATOCRIT 42.2 % (35.0-50.0); HEMOGLOBIN 14.1 g/dL (12.0-18.0); MCH 30.4 (27-36); MCHC 33.4 g/dl (30-36); MCV 90.9 fl (81-99); PLATELET COUNT 126 K/uL (140-440); RBC 4.64 M/ul (4.3-5.7); RDW 13.7 (10.5-15.0)
[2023-01-01 18:34] LABS: ALBUMIN 4.1 g/dL (3.4-5.0); ALBUMIN/GLOBULIN RATIO 1.37 (1.1-2.4); ANION GAP 13.6 (7-21); BILIRUBIN, TOTAL 0.6 ng/dL (0.2-1.0); BUN/CREATININE RATIO 10.95 (6.0-28.6); CREATININE, SERUM 0.73 mg/dL (0.55-1.02); POTASSIUM 3.6 mmol/L (3.5-5.1); PROTEIN, TOTAL 7.1 g/dL (6.4-8.2)
[2023-01-01 18:39] LABS: BANDS, MANUAL DIFF 3; LYMPHOCYTES, MANUAL DIFF 33; MONOCYTES, MANUAL DIFF 8; NEUTROPHILS, MANUAL DIFF 56
[2023-01-01 19:17] LABS: BILIRUBIN, URINE POSITIVE (negative); BLOOD/HGB, URINE LARGE (Negative); KETONE, URINE SMALL (Negative); LEUK ESTERASE, URINE NEGATIVE (negative); NITRITE, URINE NEGATIVE (negative)
[2023-01-01 19:25] LABS: BACTERIA, URINE RARE /hpf (negative); CASTS, URINE NONE SEEN \\lpf; COLLECTION TYPE, URINE CLEAN CATCH; CRYSTALS, URINE NONE SEEN (0-1+); EPITHELIAL CELLS, URINE SQUAMOUS 1+ /lpf (0-1+); RED BLOOD CELLS, URINE >50 /hpf (0-5); REFLEX CULTURE, URINE No (No)
[2023-01-01] MEDS ORDERED: ONDANSETRON ODT8 MG PO (20:39)
[2023-01-01 20:52] VITALS: BP 105/74
== END 2023-01-01 20:53 | disposition home or self-care (01) ==
LOC: ED 17:54
PROVIDERS: Emergency Medicine
DX: A08.4 Viral intestinal infection, unspecified (principal); Z88.0 Allergy status to penicillin
CPT/HCPCS: 36415; 74177; 80053; 81001; 84703; 85025; 99284-25; A9270; J2405; Q9967

== ENCOUNTER 2023-08-17 22:31 | Emergency (ER) | payer OTHER ==
[~2023-08-17] VITALS: Ht 167.6 cm; Wt 58.0 kg
[2023-08-18 00:57] VITALS: BP 98/76
== END 2023-08-18 00:58 | disposition home or self-care (01) ==
LOC: ED 22:31
DX: S90.31XA Contusion of right foot, initial encounter (principal); W22.8XXA Striking against or struck by other objects, initial encounter; Z88.0 Allergy status to penicillin
CPT/HCPCS: 99283-25

== ENCOUNTER 2024-04-26 15:31 | Emergency (ER) | payer SELFPAY ==
[~2024-04-26] VITALS: Ht 167.6 cm; Wt 58.2 kg
[2024-04-26 15:59] LABS: BILIRUBIN, URINE NEGATIVE (negative); BLOOD/HGB, URINE NEGATIVE (Negative); KETONE, URINE NEGATIVE (Negative); LEUK ESTERASE, URINE TRACE (negative); NITRITE, URINE NEGATIVE (negative); PH, URINE 7.5 (5-7)
[2024-04-26 16:05] LABS: BACTERIA, URINE RARE /hpf (negative); CASTS, URINE NONE SEEN \\lpf; COLLECTION TYPE, URINE CLEAN CATCH; CRYSTALS, URINE NONE SEEN (0-1+); EPITHELIAL CELLS, URINE SQUAMOUS 1+ /lpf (0-1+); RED BLOOD CELLS, URINE 0-1 /hpf (0-5); REFLEX CULTURE, URINE No (No); WHITE BLOOD CELLS, URINE 0-1 /HPF (0-5)
[2024-04-26] MEDS ORDERED: NAPROSYN500 MG PO (17:00)
[2024-04-26 17:10] VITALS: BP 117/72
== END 2024-04-26 17:10 | disposition home or self-care (01) ==
LOC: ED 15:31
PROVIDERS: Emergency Medicine
DX: M54.50 Low back pain, unspecified (principal); Z88.0 Allergy status to penicillin
CPT/HCPCS: 81001; 84703; 99284

== ENCOUNTER 2024-04-29 04:14 | Emergency (ER) | payer SELFPAY ==
[~2024-04-29] VITALS: Ht 167.6 cm; Wt 57.3 kg
[~2024-04-29 04:14] MED LIST changes: +NAPROSYN500 MG PO
[2024-04-29 04:37] LABS: BILIRUBIN, URINE NEGATIVE (negative); BLOOD/HGB, URINE NEGATIVE (Negative); KETONE, URINE NEGATIVE (Negative); LEUK ESTERASE, URINE NEGATIVE (negative); NITRITE, URINE NEGATIVE (negative)
[2024-04-29 04:43] LABS: BASOPHILS 0.3 % (0-2); HEMATOCRIT 36.5 % (35.0-50.0); HEMOGLOBIN 12.8 g/dL (12.0-18.0); MCH 31.8 (27-36); MCHC 34.9 g/dl (30-36); MCV 91.2 fl (81-99); MONOCYTES 8.5 % (0-12); NEUTROPHILS 59.2 % (39-80); PLATELET COUNT 238 K/uL (140-440); RBC 4.01 M/ul (4.3-5.7); RDW 12.7 (10.5-15.0)
[2024-04-29] MEDS ORDERED: KETOROLAC TROMETHAMINE 30 MG/ML VIAL IV ONE (04:45)
[2024-04-29] MEDS ORDERED: ondansetron HCL 4 MG/2 ML VIAL IV ONE (04:45)
[2024-04-29 05:04] LABS: ALBUMIN/GLOBULIN RATIO 1.38 (1.1-2.4); ANION GAP 14.7 (7-21); BILIRUBIN, TOTAL 0.8 ng/dL (0.2-1.0); BUN/CREATININE RATIO 13.04 (6.0-28.6); CREATININE, SERUM 0.69 mg/dL (0.55-1.02); MAGNESIUM 1.8 mg/dL (1.8-2.4); POTASSIUM 3.7 mmol/L (3.5-5.1); PROTEIN, TOTAL 6.9 g/dL (6.4-8.2)
[2024-04-29] MEDS ORDERED: LACTATED RINGER'S 1,000 ML IV ONE (06:00)
[2024-04-29 07:06] VITALS: BP 107/68
== END 2024-04-29 07:00 | disposition home or self-care (01) ==
LOC: ED 04:14
PROVIDERS: Internal Medicine
DX: R10.31 Right lower quadrant pain (principal); R11.0 Nausea; Z88.0 Allergy status to penicillin; Z79.1 Long term (current) use of non-steroidal anti-inflammatories (NSAID)
CPT/HCPCS: 36415; 74177; 80053; 81003; 83690; 83735; 84703; 85025; 96375; 99284-25; J1885; J2405; J7121; Q9967

== ENCOUNTER 2024-05-08 07:49 | Emergency (ER) | payer SELFPAY ==
[~2024-05-08] VITALS: Ht 167.6 cm; Wt 55.8 kg
[2024-05-08] MEDS ORDERED: SODIUM CHLORIDE 0.9% 1,000 ML IV ONE (08:15)
[2024-05-08 08:31] LABS: BASOPHILS 0.2 % (0-2); EOSINOPHILS 1.1 % (0-6); HEMATOCRIT 37.5 % (35.0-50.0); HEMOGLOBIN 12.9 g/dL (12.0-18.0); LYMPHOCYTES 33.2 % (24-44); MCH 31.5 (27-36); MCHC 34.3 g/dl (30-36); MCV 91.7 fl (81-99); MONOCYTES 8.2 % (0-12); NEUTROPHILS 57.3 % (39-80); PLATELET COUNT 209 K/uL (140-440); RBC 4.09 M/ul (4.3-5.7); RDW 13.1 (10.5-15.0)
[2024-05-08 08:41] LABS: BILIRUBIN, URINE NEGATIVE (negative); BLOOD/HGB, URINE NEGATIVE (Negative); KETONE, URINE NEGATIVE (Negative); LEUK ESTERASE, URINE NEGATIVE (negative); NITRITE, URINE NEGATIVE (negative)
[2024-05-08 08:47] LABS: ALBUMIN 4.2 g/dL (3.4-5.0); ALBUMIN/GLOBULIN RATIO 1.4 (1.1-2.4); ANION GAP 14.8 (7-21); BUN/CREATININE RATIO 19.69 (6.0-28.6); CALCIUM 9.2 mg/dL (8.5-10.1); CREATININE, SERUM 0.66 mg/dL (0.55-1.02); POTASSIUM 3.8 mmol/L (3.5-5.1); PROTEIN, TOTAL 7.2 g/dL (6.4-8.2)
[2024-05-08 10:13] VITALS: BP 98/71
== END 2024-05-08 10:24 | disposition home or self-care (01) ==
LOC: ED 07:49
PROVIDERS: Emergency Medicine
DX: R10.9 Unspecified abdominal pain (principal); Z88.0 Allergy status to penicillin
CPT/HCPCS: 36415; 74177; 80053; 81003; 83690; 84703; 85025; J7030; Q9967

== ENCOUNTER 2024-05-27 01:23 | Emergency (ER) | payer BC ==
[~2024-05-27] VITALS: Ht 167.6 cm; Wt 59.0 kg
[2024-05-27 01:40] LABS: BASOPHILS 0.4 % (0-2); HEMATOCRIT 37.2 % (35.0-50.0); HEMOGLOBIN 12.8 g/dL (12.0-18.0); MCH 31.6 (27-36); MCHC 34.3 g/dl (30-36); MCV 92.2 fl (81-99); MONOCYTES 6.8 % (0-12); NEUTROPHILS 54.8 % (39-80); PLATELET COUNT 235 K/uL (140-440); RBC 4.03 M/ul (4.3-5.7); RDW 12.8 (10.5-15.0)
[2024-05-27] MEDS ORDERED: KETOROLAC TROMETHAMINE 30 MG/ML VIAL IV ONE (01:45)
[2024-05-27] MEDS ORDERED: ondansetron HCL 4 MG/2 ML VIAL IV ONE (01:45)
[2024-05-27] MEDS ORDERED: LACTATED RINGER'S 1,000 ML IV ONE (01:45)
[2024-05-27] MEDS ORDERED: FAMOTIDINE 20 MG/ 2 ML VIAL IV ONE (01:45)
[2024-05-27 01:55] LABS: ALBUMIN 4.1 g/dL (3.4-5.0); ALBUMIN/GLOBULIN RATIO 1.32 (1.1-2.4); ANION GAP 10.6 (7-21); BILIRUBIN, TOTAL 0.8 ng/dL (0.2-1.0); BUN/CREATININE RATIO 13.11 (6.0-28.6); CALCIUM 8.8 mg/dL (8.5-10.1); CREATININE, SERUM 0.61 mg/dL (0.55-1.02); POTASSIUM 3.6 mmol/L (3.5-5.1); PROTEIN, TOTAL 7.2 g/dL (6.4-8.2)
[2024-05-27 02:36] LABS: BILIRUBIN, URINE NEGATIVE (negative); BLOOD/HGB, URINE NEGATIVE (Negative); KETONE, URINE NEGATIVE (Negative); LEUK ESTERASE, URINE SMALL (negative); NITRITE, URINE NEGATIVE (negative)
[2024-05-27 02:42] LABS: EPITHELIAL CELLS, URINE SQUAMOUS 1+ /lpf (0-1+)
[2024-05-27 02:43] LABS: BACTERIA, URINE 3+ /hpf (negative); CASTS, URINE NONE SEEN \\lpf; COLLECTION TYPE, URINE CLEAN CATCH; CRYSTALS, URINE NONE SEEN (0-1+); RED BLOOD CELLS, URINE 0-1 /hpf (0-5); REFLEX CULTURE, URINE Yes (No)
[2024-05-27] MEDS ORDERED: PYRIDIUM100 MG PO (02:50)
[2024-05-27] MEDS ORDERED: MACROBID 100 M100 MG PO (02:50)
[2024-05-27 03:00] VITALS: BP 106/74
[2024-05-27] MEDS ORDERED: NITROFURANTOIN MONOHYD MACROCR 100 MG HOME.PACK PO ONE (03:00)
[2024-05-27] MEDS ORDERED: PHENAZOPYRIDINE HCL 100 MG TAB PO ONE (03:00)
== END 2024-05-27 03:00 | disposition home or self-care (01) ==
LOC: ED 01:23
PROVIDERS: Internal Medicine
DX: N39.0 Urinary tract infection, site not specified (principal); R10.9 Unspecified abdominal pain; G89.29 Other chronic pain; Z88.0 Allergy status to penicillin
CPT/HCPCS: 36415; 80053; 81001; 83690; 84703; 85025; 87088; 96374; 96375; 99284-25; J1885; J2405; J7121

== ENCOUNTER 2024-06-07 23:00 | Emergency (ER) | payer BC ==
[~2024-06-07] VITALS: Ht 167.6 cm; Wt 57.6 kg
[~2024-06-07 23:00] MED LIST changes: +MACROBID 100 M100 MG PO; +PYRIDIUM100 MG PO
[2024-06-07] MEDS ORDERED: LACTATED RINGER'S 1,000 ML IV ONE (23:15)
[2024-06-07] MEDS ORDERED: FAMOTIDINE 20 MG/ 2 ML VIAL IV ONE (23:15)
[2024-06-07 23:16] LABS: BASOPHILS 0.3 % (0-2); HEMATOCRIT 38.8 % (35.0-50.0); HEMOGLOBIN 13.1 g/dL (12.0-18.0); LYMPHOCYTES 9.1 % (24-44); MCH 31.2 (27-36); MCHC 33.9 g/dl (30-36); MCV 92.2 fl (81-99); MONOCYTES 8.4 % (0-12); NEUTROPHILS 82.2 % (39-80); PLATELET COUNT 214 K/uL (140-440); RBC 4.21 M/ul (4.3-5.7); RDW 12.8 (10.5-15.0)
[2024-06-07 23:28] LABS: ALBUMIN 4.4 g/dL (3.4-5.0); ALBUMIN/GLOBULIN RATIO 1.69 (1.1-2.4); ANION GAP 17.7 (7-21); BILIRUBIN, TOTAL 2.1 ng/dL (0.2-1.0); CALCIUM 9.2 mg/dL (8.5-10.1); CREATININE, SERUM 0.6 mg/dL (0.55-1.02); POTASSIUM 3.7 mmol/L (3.5-5.1)
[2024-06-07 23:32] LABS: BILIRUBIN, URINE NEGATIVE (negative); BLOOD/HGB, URINE NEGATIVE (Negative); KETONE, URINE >=80 (Negative); LEUK ESTERASE, URINE NEGATIVE (negative); NITRITE, URINE NEGATIVE (negative)
[2024-06-07] MEDS ORDERED: KETOROLAC TROMETHAMINE 30 MG/ML VIAL IV ONE (23:45)
[2024-06-07 23:47] LABS: AMPHETAMINES, URINE NEGATIVE (NEGATIVE); BARBITURATES, URINE NEGATIVE (NEGATIVE); BENZODIAZEPINE, URINE NEGATIVE (NEGATIVE); BUPRENORPHINE, URINE NEGATIVE (NEGATIVE); CANNABINOID, URINE NEGATIVE (NEGATIVE); COCAINE, URINE NEGATIVE (NEGATIVE); ECSTASY, URINE NEGATIVE (NEGATIVE); FENTANYL, URINE NEGATIVE (NEGATIVE); METHADONE, URINE NEGATIVE (NEGATIVE); OPIATES, URINE NEGATIVE (NEGATIVE); OXYCODONE, URINE NEGATIVE (NEGATIVE); PHENCYCLIDINE, URINE NEGATIVE (NEGATIVE)
[2024-06-08] MEDS ORDERED: ONDANSETRON ODT4 MG PO (00:30)
[2024-06-08 00:34] VITALS: BP 113/66
== END 2024-06-08 00:41 | disposition home or self-care (01) ==
LOC: ED 23:00
PROVIDERS: Internal Medicine
DX: K52.9 Noninfective gastroenteritis and colitis, unspecified (principal); Z88.0 Allergy status to penicillin
CPT/HCPCS: 36415; 80053; 80307; 81003; 83690; 84703; 85025; 96361; 96374; 96375; 99284-25; J1885; J7121

== ENCOUNTER 2024-06-25 18:17 | Emergency (ER) | payer BC ==
[~2024-06-25] VITALS: Ht 167.6 cm; Wt 57.6 kg
[2024-06-25] MEDS ORDERED: KETOROLAC TROMETHAMINE 30 MG/ML VIAL IM ONE (19:45)
[2024-06-25 21:17] VITALS: BP 109/68
== END 2024-06-25 21:21 | disposition home or self-care (01) ==
LOC: ED 18:17
DX: G56.01 Carpal tunnel syndrome, right upper limb (principal); Z88.0 Allergy status to penicillin
CPT/HCPCS: 36415; 73110; 84550; 86140; 99283; J1885

== ENCOUNTER 2024-07-06 02:06 | Emergency (ER) | payer BC ==
[~2024-07-06] VITALS: Ht 167.6 cm; Wt 57.6 kg
[2024-07-06 02:27] LABS: BASOPHILS 0.3 % (0-2); EOSINOPHILS 1.1 % (0-6); HEMATOCRIT 37.2 % (35.0-50.0); HEMOGLOBIN 12.8 g/dL (12.0-18.0); LYMPHOCYTES 32.3 % (24-44); MCH 31.4 (27-36); MCHC 34.4 g/dl (30-36); MCV 91.5 fl (81-99); MONOCYTES 8.7 % (0-12); NEUTROPHILS 57.6 % (39-80); PLATELET COUNT 231 K/uL (140-440); RBC 4.06 M/ul (4.3-5.7); RDW 13.1 (10.5-15.0)
[2024-07-06 02:29] LABS: BILIRUBIN, URINE NEGATIVE (negative); BLOOD/HGB, URINE NEGATIVE (Negative); KETONE, URINE NEGATIVE (Negative); LEUK ESTERASE, URINE NEGATIVE (negative); NITRITE, URINE NEGATIVE (negative)
[2024-07-06] MEDS ORDERED: ondansetron HCL 4 MG/2 ML VIAL IV ONE (02:30)
[2024-07-06] MEDS ORDERED: KETOROLAC TROMETHAMINE 15 MG/ML VIAL IV ONE (02:30)
[2024-07-06] MEDS ORDERED: SODIUM CHLORIDE 0.9% 1,000 ML IV ONE (02:30)
[2024-07-06 02:37] LABS: ALBUMIN 4.1 g/dL (3.4-5.0); ALBUMIN/GLOBULIN RATIO 1.32 (1.1-2.4); ANION GAP 11.6 (7-21); BILIRUBIN, TOTAL 0.9 mg/dL (0.2-1.0); BUN/CREATININE RATIO 13.46 (6.0-28.6); CALCIUM 9.2 mg/dL (8.5-10.1); CREATININE, SERUM 0.52 mg/dL (0.55-1.02); POTASSIUM 3.6 mmol/L (3.5-5.1); PROTEIN, TOTAL 7.2 g/dL (6.4-8.2)
[2024-07-06] MEDS ORDERED: DICYCLOMINE HCL20 MG PO (03:05)
[2024-07-06 03:20] VITALS: BP 106/70
== END 2024-07-06 03:18 | disposition home or self-care (01) ==
LOC: ED 02:06
PROVIDERS: Emergency Medicine
DX: R10.31 Right lower quadrant pain (principal); Z88.0 Allergy status to penicillin
CPT/HCPCS: 36415; 80053; 81003; 83690; 84703; 85025; 96374; 96375; 99284-25; J1885; J2405; J7030

== ENCOUNTER 2024-08-03 02:45 | Emergency (ER) | payer BC ==
[~2024-08-03] VITALS: Ht 167.6 cm; Wt 56.0 kg
[~2024-08-03 02:45] MED LIST changes: +DICYCLOMINE HCL20 MG PO
[2024-08-03] MEDS ORDERED: KETOROLAC TROMETHAMINE 30 MG/ML VIAL IM ONE (03:00)
[2024-08-03] MEDS ORDERED: CYCLOBENZAPRINE10 MG PO (03:31)
[2024-08-03 03:42] VITALS: BP 118/81
== END 2024-08-03 03:43 | disposition home or self-care (01) ==
LOC: ED 02:45
DX: S20.211A Contusion of right front wall of thorax, initial encounter (principal); W50.0XXA Accidental hit or strike by another person, initial encounter
CPT/HCPCS: 71101; 71111; 99283; J1885

== ENCOUNTER 2024-08-19 15:26 | Emergency (ER) | payer BC ==
[~2024-08-19] VITALS: Ht 167.6 cm; Wt 55.6 kg
[~2024-08-19 15:26] MED LIST changes: +CYCLOBENZAPRINE10 MG PO
[2024-08-19] MEDS ORDERED: SODIUM CHLORIDE 0.9% 1,000 ML IV ONE (20:00)
[2024-08-19] MEDS ORDERED: KETOROLAC TROMETHAMINE 15 MG/ML VIAL IV ONE (20:00)
[2024-08-19] MEDS ORDERED: ondansetron HCL 4 MG/2 ML VIAL IV ONE (20:00)
[2024-08-19 20:18] LABS: BASOPHILS 0.1 % (0-2); HEMATOCRIT 36.7 % (35.0-50.0); HEMOGLOBIN 12.6 g/dL (12.0-18.0); LYMPHOCYTES 2.5 % (24-44); MCH 30.7 (27-36); MCHC 34.3 g/dl (30-36); MCV 89.3 fl (81-99); MONOCYTES 4.5 % (0-12); NEUTROPHILS 92.9 % (39-80); PLATELET COUNT 260 K/uL (140-440); RBC 4.11 M/ul (4.3-5.7); RDW 12.7 (10.5-15.0)
[2024-08-19 20:35] LABS: ALBUMIN 4.2 g/dL (3.4-5.0); ALBUMIN/GLOBULIN RATIO 1.35 (1.1-2.4); ANION GAP 13.8 (7-21); BILIRUBIN, TOTAL 1.6 mg/dL (0.2-1.0); BUN/CREATININE RATIO 15.87 (6.0-28.6); CREATININE, SERUM 0.63 mg/dL (0.55-1.02); POTASSIUM 3.8 mmol/L (3.5-5.1); PROTEIN, TOTAL 7.3 g/dL (6.4-8.2)
[2024-08-19 20:56] LABS: INFLUENZA B NAA NEGATIVE (NEGATIVE); RESPIRATORY SYNCYTIAL VIR NAA NEGATIVE (NEGATIVE)
[2024-08-19] MEDS ORDERED: HYOSCYAMINE0.125 M2 PO (21:36)
[2024-08-19 21:53] LABS: BILIRUBIN, URINE POSITIVE (negative); BLOOD/HGB, URINE LARGE (Negative); KETONE, URINE >=80 (Negative); LEUK ESTERASE, URINE NEGATIVE (negative); NITRITE, URINE NEGATIVE (negative)
[2024-08-19 22:00] LABS: BACTERIA, URINE RARE /hpf (negative); CASTS, URINE NONE SEEN \\lpf; COLLECTION TYPE, URINE CLEAN CATCH; CRYSTALS, URINE NONE SEEN (0-1+); EPITHELIAL CELLS, URINE SQUAMOUS 1+ /lpf (0-1+); REFLEX CULTURE, URINE No (No)
[2024-08-19] MEDS ORDERED: ONDANSETRON 4 MG HOME.PACK SL ONE (22:15)
[2024-08-19] MEDS ORDERED: DICYCLOMINE HCL 10 MG HOME.PACK PO ONE (22:15)
[2024-08-19 22:35] VITALS: BP 101/65
== END 2024-08-19 22:36 | disposition home or self-care (01) ==
LOC: ED 15:26
PROVIDERS: Family Medicine
DX: K52.9 Noninfective gastroenteritis and colitis, unspecified (principal); Z88.0 Allergy status to penicillin
CPT/HCPCS: 36415; 76705; 80053; 81001; 83690; 84703; 85025; 87502; 96374; 96375; 99284-25; A9270; J1885; J2405; J7030; U0002

== ENCOUNTER 2024-11-01 03:19 | Emergency (ER) | payer BC ==
[~2024-11-01] VITALS: Ht 165.1 cm; Wt 56.0 kg
[~2024-11-01 03:19] MED LIST changes: +HYOSCYAMINE0.125 M2 PO
[2024-11-01 03:44] LABS: BILIRUBIN, URINE NEGATIVE (negative); BLOOD/HGB, URINE NEGATIVE (Negative); KETONE, URINE NEGATIVE (Negative); LEUK ESTERASE, URINE NEGATIVE (negative); NITRITE, URINE NEGATIVE (negative)
[2024-11-01] MEDS ORDERED: ondansetron HCL 4 MG/2 ML VIAL IV ONE (03:45)
[2024-11-01 03:52] LABS: BASOPHILS 0.3 % (0.1-1.2); HEMATOCRIT 35.4 % (34.1-44.9); HEMOGLOBIN 11.7 g/dL (11.2-15.7); MCH 30.2 PG (25.6-32.2); MCHC 33.1 g/dL (32.2-35.5); MCV 91.5 fL (79.4-94.8); MONOCYTES 6.4 % (4.7-12.5); NEUTROPHILS 65.9 % (34.0-71.1); PLATELET COUNT 219 K/uL (182-369); RBC 3.87 M/uL (3.93-5.22)
[2024-11-01] MEDS ORDERED: SODIUM CHLORIDE 0.9% 500 ML IV PRN (04:00)
[2024-11-01 04:08] LABS: ALBUMIN 3.8 g/dL (3.4-5.0); ALBUMIN/GLOBULIN RATIO 1.31 (1.1-2.4); ANION GAP 13.4 (7-21); BILIRUBIN, TOTAL 0.9 mg/dL (0.2-1.0); BUN/CREATININE RATIO 13.33 (6.0-28.6); CALCIUM 8.4 mg/dL (8.5-10.1); CREATININE, SERUM 0.75 mg/dL (0.55-1.02); POTASSIUM 3.4 mmol/L (3.5-5.1); PROTEIN, TOTAL 6.7 g/dL (6.4-8.2)
[2024-11-01] MEDS ORDERED: ONDANSETRON 4 MG HOME.PACK SL ONE (04:15)
[2024-11-01] MEDS ORDERED: PROMETHAZINE HCL 25 MG HOME.PACK PO ONE (04:15)
[2024-11-01 04:32] VITALS: BP 103/67
== END 2024-11-01 04:33 | disposition home or self-care (01) ==
LOC: ED 03:19
PROVIDERS: Family Medicine
DX: K52.9 Noninfective gastroenteritis and colitis, unspecified (principal); Z88.0 Allergy status to penicillin
CPT/HCPCS: 36415; 80053; 81003; 83735; 84703; 85025; 96361; 96374; 99284-25; A9270; J2405; J7040

== ENCOUNTER 2024-12-10 05:37 | Emergency (ER) | payer BC ==
[~2024-12-10] VITALS: Ht 165.1 cm; Wt 56.8 kg
[2024-12-10 06:02] LABS: BASOPHILS 0.3 % (0.1-1.2); EOSINOPHILS 1.1 % (0.7-5.8); LYMPHOCYTES 37.5 % (19.3-51.7); MCH 30.3 PG (25.6-32.2); MCHC 33.9 g/dL (32.2-35.5); MCV 89.4 fL (79.4-94.8); MONOCYTES 8.9 % (4.7-12.5); NEUTROPHILS 52.0 % (34.0-71.1); RBC 4.26 M/uL (3.93-5.22)
[2024-12-10] MEDS ORDERED: KETOROLAC TROMETHAMINE 15 MG/ML VIAL IV ONE (06:15)
[2024-12-10 06:21] LABS: ALT (SGPT) 13 U/L (14-59); AST (SGOT) 8 U/L (15-37); GLOMERULAR FILTRATION RATE,EST 129 mL/min (>60); PROTEIN, TOTAL 7.1 g/dL (6.4-8.2); UREA NITROGEN 9 mg/dL (7-18)
[2024-12-10] MEDS ORDERED: CYCLOBENZAPRINE HCL 10 MG HOME.PACK PO ONE (07:00)
[2024-12-10 07:01] VITALS: BP 98/72
--- NOTE | 2024-12-10 17:39 | EKG ---
[facility] [address] [place], [place] [address] Signed Normal sinus rhythm Normal ECG No previous ECGs available Confirmed by Mame Choi MD ([id number]) on 12/10/2024 5:39:50 PM Electronically Signed By: MAME CHOI MD 12/10/24 1739 PATIENT NAME: AG BEACH Electrocardiogram DATE OF : 4 PHYSICIAN: MAME CHOI MD REPORT #: [id number] REPORT IS CONFIDENTIAL AND NOT TO BE RELEASED WITHOUT AUTHORIZATION
== END 2024-12-10 07:02 | disposition home or self-care (01) ==
LOC: ED 05:37
PROVIDERS: Family Medicine
DX: R07.89 Other chest pain (principal); Z88.0 Allergy status to penicillin
CPT/HCPCS: 36415; 71046; 80053; 83735; 84484; 85025; 85379; 93005; 93010; J1885

== ENCOUNTER 2024-12-24 03:37 | Emergency (ER) | payer BC ==
[~2024-12-24] VITALS: Ht 165.1 cm; Wt 57.5 kg
[2024-12-24] MEDS ORDERED: SODIUM CHLORIDE 0.9% 1,000 ML IV ONE (03:45)
[2024-12-24] MEDS ORDERED: PROCHLORPERAZINE EDISYLATE 10 MG/2 ML VIAL IV ONE (03:45)
[2024-12-24] MEDS ORDERED: KETOROLAC TROMETHAMINE 30 MG/ML VIAL IV ONE (03:45)
[2024-12-24 03:54] LABS: BASOPHILS 0.4 % (0.1-1.2); EOSINOPHILS 1.3 % (0.7-5.8); LYMPHOCYTES 41.0 % (19.3-51.7); MCH 30.5 PG (25.6-32.2); MCHC 33.7 g/dL (32.2-35.5); MCV 90.7 fL (79.4-94.8); MONOCYTES 7.3 % (4.7-12.5); NEUTROPHILS 49.7 % (34.0-71.1); RBC 4.19 M/uL (3.93-5.22)
[2024-12-24 03:57] LABS: BLOOD/HGB, URINE SMALL (Negative); KETONE, URINE NEGATIVE (Negative); LEUK ESTERASE, URINE NEGATIVE (negative); NITRITE, URINE NEGATIVE (negative)
[2024-12-24 04:06] LABS: BACTERIA, URINE RARE /hpf (negative); CASTS, URINE NONE SEEN \\lpf; CRYSTALS, URINE NONE SEEN (0-1+); EPITHELIAL CELLS, URINE SQUAMOUS 2+ /lpf (0-1+); REFLEX CULTURE, URINE No (No)
[2024-12-24 04:09] LABS: ALT (SGPT) 11.0 U/L (14-59); AST (SGOT) 11.0 U/L (15-37); GLOMERULAR FILTRATION RATE,EST 132.0 mL/min (>60); PROTEIN, TOTAL 7.2 g/dL (6.4-8.2); UREA NITROGEN 11.0 mg/dL (7-18)
[2024-12-24] MEDS ORDERED: CYCLOBENZAPRINE HCL 10 MG HOME.PACK PO ONE (05:30)
[2024-12-24 05:32] VITALS: BP 116/85
== END 2024-12-24 05:34 | disposition home or self-care (01) ==
LOC: ED 03:37
PROVIDERS: Family Medicine
DX: R10.9 Unspecified abdominal pain (principal); R11.0 Nausea; Z88.0 Allergy status to penicillin
CPT/HCPCS: 36415; 74176; 80053; 81001; 84703; 85025; 96374; 96375; 99284-25; J0780; J1885; J7030

== ENCOUNTER 2025-02-02 01:43 | Emergency (ER) | payer SELFPAY ==
[~2025-02-02] VITALS: Ht 165.1 cm; Wt 59.0 kg
[2025-02-02 04:15] VITALS: BP 122/80
== END 2025-02-02 04:16 | disposition home or self-care (01) ==
LOC: ED 01:43
DX: S63.502A Unspecified sprain of left wrist, initial encounter (principal); X50.1XXA Overexertion from prolonged static or awkward postures, initial encounter; Z41.9 Encounter for procedure for purposes other than remedying health state, unspecified; Z88.0 Allergy status to penicillin
CPT/HCPCS: 73110; 99283